=== PATIENT | male | born 1980 | race Caucasian/White ===

== ENCOUNTER 2020-02-20 21:43 | Emergency (ER) | payer SELFPAY ==
[2020-02-20 22:56] VITALS: BP 137/88; PULSE 98; RESP 16; TEMP 36.7; O2SAT 99; BMI 22.4
[2020-02-20] MEDS: tetanus-diphtheria tox (adult) 0.5 mL SDV IM (23:43)
--- NOTE | 2020-02-20 23:51 | W.ED.SKABFB ---
HPI - Skin/Abscess/Foreign Bdy General: Chief complaint: Skin/Abscess/Foreign Body Stated complaint: fish hook in leg Time Seen by Provider: 02/20/20 23:24 Source: patient Mode of arrival: ambulatory Limitations: no limitations History of Present Illness: HPI narrative: got fish hook stuck to L LE a few hours ago; unknown last tetanus complaint: foreign body Onset (ago): hour(s) Tetanus up to date: unsure Location: LLE Severity: mild Context: other (fishing) Associated symptoms: Reports no associated symptoms Treatments prior to arrival: none Review of Systems Musc: Reports: extremity pain Skin/Breast: Reports: other (fish hook to L LE) PFS ED PFSH: Social History Smoking and tobacco status: current every day smoker Physical Exam Const: COMMON NORMALS: no acute distress, average body habitus, patient oriented x3, no limitations, healthy appearing, alert and well nourished Extremity: OTHER: 3 pronged fish hook with one jonny stuck in L LE Neuro: COMMON NORMALS: patient oriented x3, moves all extremities, no focal motor deficits and no sensory deficits noted SENSORIUM/ORIENTATION: Yes alert Skin: OTHER: see extremity Procedures Foreign Body Removal Time Out Performed: no Site: left and lower extremity Description of foreign body: fish hook Sedation/Analgesia: other (local lidocaine with epi) Technique: manual removal and other (hemostats used to push jonny through skin, wire cutters to cut jonny and then hook retracted ) Confirmed by:: direct visualization Complications: none Post-procedure exam: awake, alert Neurovascular: normal distal pulse, normal capillary fill, distal light touch sensation intact, distal motor function normal, no signs of compartment syndrome and no change from pre-procedure Course Vital Signs: Vital signs: Vital Signs Temperature 98.0 F 02/20/20 22:56 Pulse Rate 98 02/20/20 22:56 Respiratory Rate 16 02/20/20 22:56 Blood Pressure 137/88 02/20/20 22:56 Pulse Oximetry 99 02/20/20 22:56 Discharge Plan Discharge Patient Disposition: Home, Self-Care Clinical Impression: Fish hook injury of left lower leg Qualifiers: Encounter type: initial encounter Qualified Code(s): S89.92XA - Unspecified injury of left lower leg, initial encounter Condition: Stable Prescriptions: No Action lisinopril 20 mg Tablet 20 mg RF: 0 Discharge Orders: Discharge Order (Routine); Ordered 02/20/20 Ordered By: Yumiko Cohn Coding Level of Care Code ED Manager Company for Jerome Bennett
[2020-02-21 00:03] VITALS: BP 148/71; PULSE 74; RESP 18; O2SAT 98
== END 2020-02-21 00:04 | disposition home or self-care (01) ==
PROVIDERS: Emergency Provider Physician Assistant
DX: S81.842A Puncture wound with foreign body, left lower leg, initial encounter (principal); W26.8XXA Contact with other sharp object(s), not elsewhere classified, initial encounter; F17.210 Nicotine dependence, cigarettes, uncomplicated; Z23 Encounter for immunization
CPT/HCPCS: 12345; 90471; 90714; 99281; 99282; J2001

== ENCOUNTER 2021-05-01 03:09 | Emergency (ER) | payer MEDICAID, SELFPAY ==
--- NOTE | 2021-05-01 03:18 | XRR_ITS ---
PROCEDURE INFORMATION: Exam: XR Left Wrist Exam date and time: 05/01/2021 3:18 AM Age: 41 years old Clinical indication: Injury or trauma; Fall; Blunt trauma (contusions or hematomas); Wrist; Left TECHNIQUE: Imaging protocol: XR Left wrist. Views: 3 or more views. COMPARISON: No relevant prior studies available. FINDINGS: Bones/joints: Old nonunited fracture of the distal radial styloid. No acute fracture or dislocation. Soft tissues: No large area of soft tissue swelling. XR/XR wrist LT min 3V* [id number] IMPRESSION: No acute fracture. Old nonunited fracture of the radial styloid.
[2021-05-01 04:07] VITALS: BP 147/87; PULSE 96; RESP 18; TEMP 36.6; O2SAT 98; BMI 22.4
[2021-05-01 04:11] VITALS: PULSE 77
--- NOTE | 2021-05-01 04:11 | ED_ITS ---
HPI - Extremity Problem General: Chief complaint: Extremity Problem,Nontraumatic Stated complaint: L WRIST INJURY DUE TO FALL Time Seen by Provider: 05/01/21 03:23 Source: patient Mode of arrival: ambulatory Limitations: no limitations History of Present Illness: HPI Narrative: 41-year-old male states he had a fall 2 days ago onto his left wrist. He states that he has had pain in that wrist since the fall. States pain has been sharp in nature and over the palmar aspect he rates it a 4 out of 10. States is worse with movement. States he fractured that wrist years ago. He denies any other injuries. He states pain currently is a 4 out of 10. Is worse with movement improved with rest. Associated symptoms: Deny chest pain, fever(s) or rash Review of Systems Const: Denies: fever(s), chills, body aches or change in appetite Eyes: Denies: blurry vision or eye discomfort ENMT: Denies: throat pain or dental pain Card: Denies: chest pain Resp: Denies: dyspnea GI: Denies: abdominal pain, nausea, vomiting or diarrhea : Denies: dysuria Musc: Reports: joint pain Skin/Breast: Denies: rash Neuro: Denies: headache(s) Psych: Denies: depression Behzad/Lymph: Denies: easy bruising All/Imm: Denies: urticaria PFSH ED PFSH: Social History Smoking and tobacco status: current every day smoker Physical Exam Const: COMMON NORMALS: no acute distress, patient oriented x3 and healthy appearing HENMT: COMMON NORMALS: normocephalic and atraumatic HEAD & SCALP: normocephalic and atraumatic Eye: COMMON NORMALS: Equal, round and reactive pupils present and EOMs intact bilaterally PUPIL: Yes Equal, round and reactive pupils present Neck/C-Spine: COMMON NORMALS: full ROM and supple Chest: COMMONS NORMALS: normal inspection of the chest and normal palpation of entire chest wall Resp: COMMON NORMALS: normal respiratory effort, No retractions, No use of accessory muscles and clear to auscultation bilaterally AUSCULTATION: clear to auscultation bilaterally Cardio: COMMON NORMALS: regular rate, regular rhythm and No murmurs present (Cardio) RATE: regular rate RHYTHM: regular rhythm GI: COMMON NORMALS: Normal to inspection, nondistended, normoactive bowel sounds present, Soft to palpation, non-tender and no masses PALPATION: Yes Soft to palpation Extremity: COMMON NORMALS: normal to inspection and full ROM NARRATIVE EXTREMITY EXAM: Tenderness over palmar aspect of left wrist no signs of cellulitis or septic joint. No obvious deformity distal pulses and sensation are intact Neuro: COMMON NORMALS: patient oriented x3, moves all extremities and no focal motor deficits Psych: COMMON NORMALS: mental status grossly normal, Normal thought process present and cooperative THOUGHT PROCESS: Normal thought process present Skin: COMMON NORMALS: no rashes or lesions noted and no wounds GENERAL SKIN EXAM: no rashes or lesions noted Course Vital Signs: Vital signs: Vital Signs Temperature 97.8 F 05/01/21 04:07 Pulse Rate 77 05/01/21 04:11 Respiratory Rate 18 05/01/21 04:07 Blood Pressure 147/87 05/01/21 04:07 Pulse Oximetry 98 05/01/21 04:07 MDM - Extremity (Nontraumatic) MDM Narrative: Medical decision making narrative: Patient presents with a wri st sprain from a fall. X-ray here shows no acute fracture. His exam here shows no signs of cellulitis or septic joint. Patient placed in a cock-up wrist splint placed on anti-inflammatories and is to follow-up with orthopedist in 2 to 4 days and return if worsening. Imaging Data^: xr L wrist: Attestation: I personally reviewed and interpreted this imaging study as follows: My impression: no acute fx Discharge Plan Discharge Patient Disposition: Home Clinical Impression: Sprain of wrist, right Qualifiers: Encounter type: initial encounter Qualified Code(s): S63.501A - Unspecified sprain of right wrist, initial encounter Condition: Stable Prescriptions: No Action lisinopril 20 mg Tablet 20 mg RF: 0 Discharge Orders: Discharge ED (Routine); Ordered 05/01/21 Ordered By: Magalys Linares Referrals: Raul Fernando MD [Physician] - 1-3 days Discharge Diet: Advance as tolerated Discharge Activity: Resume usual activity Patient Instructions: Wrist Sprain (ED) Coding Level of Care Code ED Cloth Shrinking Tester for Jerome Bennett
[2021-05-01] MEDS: HYDROcodone-acetaminophen 7.5-325 mg Tablet 1 TAB PO (04:42)
[2021-05-01 04:45] VITALS: RESP 18; TEMP 36.6; O2SAT 98
--- NOTE | 2021-05-02 08:31 | DCPLANNER ---
policy and planning manager had message to schedule a follow up appointment for patient with ortho. policy and planning manager called the ortho clinic, spoke with Staci, gave clinic patients information. policy and planning manager was told that patients information would be printed and reviewed. Clinic will call patient with appointment information.
--- NOTE | 2021-05-04 07:51 | DCPLANNER ---
Patient has a follow up appointment scheduled for Saturday, May 08, 2021 at 8:[address] Fernando at [facility]. Clinic will call patient with appointment information.
--- NOTE | 2021-05-11 14:11 | DCPLANNER ---
Patient had a follow up appointment scheduled for 05.08.21 with ortho - patient did not attend appointment.
== END 2021-05-01 04:46 | disposition home or self-care (01) ==
PROVIDERS: Emergency Provider Emergency Medicine
DX: S63.501A Unspecified sprain of right wrist, initial encounter (principal); F17.210 Nicotine dependence, cigarettes, uncomplicated; W19.XXXA Unspecified fall, initial encounter
CPT/HCPCS: 29125; 73110; 99283

== ENCOUNTER 2021-05-01 10:45 | Emergency (ER) | payer MEDICAID, SELFPAY ==
[2021-05-01 11:48] VITALS: BP 129/74; PULSE 98; RESP 17; TEMP 36.6; O2SAT 98; BMI 23.0
--- NOTE | 2021-05-01 13:23 | XRR_ITS ---
PROCEDURE INFORMATION: Exam: XR Right Wrist Exam date and time: 05/01/2021 1:23 PM Age: 41 years old Clinical indication: Pain; Wrist; Right; Additional info: Right wrist pain TECHNIQUE: Imaging protocol: XR Right wrist. Views: 3 or more views. COMPARISON: No relevant prior studies available. FINDINGS: Bones/joints: Normal. Soft tissues: Normal. XR/XR wrist RT min 3V* [id number] IMPRESSION: No acute findings.
[2021-05-01 15:43] VITALS: BP 109/75; PULSE 96; O2SAT 100
--- NOTE | 2021-05-01 17:29 | W.ED.EXTPRO ---
HPI - Extremity Problem General: Chief complaint: Extremity Injury, Upper Stated complaint: r wrist pain/swelling(seen this AM for opposite) Time Seen by Provider: 05/01/21 15:38 History of Present Illness: HPI Narrative: Patient presents with the right wrist pain for the last week. 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 He has had this problem in his left wrist here recently to. Says it hurts at the base of his wrist. MD Complaint: extremity pain and other (Numbness) Onset (ago): day(s) Pain Consistency: constant Location: right and upper extremity Quality: aching and dull Radiation: distal Relieving factors: nothing Exacerbating factors: range of motion [facility] ED PFSH: Social History Smoking and tobacco status: current every day smoker Course Vital Signs: Vital signs: Vital Signs Temperature 97.9 F 05/01/21 11:48 Pulse Rate 96 05/01/21 15:43 Respiratory Rate 17 05/01/21 11:48 Blood Pressure 109/75 05/01/21 15:43 Pulse Oximetry 100 05/01/21 15:43 Discharge Plan Discharge Patient Disposition: Home Clinical Impression: Acute carpal tunnel syndrome of right wrist Condition: Stable Prescriptions: New prednisone 20 mg tablet 20 mg PO DAILY Qty: 7 RF: 0 Celebrex 100 mg capsule 100 mg PO BID Qty: 20 RF: 0 No Action lisinopril 20 mg Tablet 20 mg RF: 0 Discharge Orders: Discharge ED (Routine); Ordered 05/01/21 Ordered By: Jamal Thakkar Discharge Diet: Usual diet Discharge Activity: Limit activity as instructed Patient Instructions: Carpal Tunnel Syndrome Exercises (GEN), Carpal Tunnel Syndrome (ED) Activity Restrictions/Additional Instructions: Follow-up with medical provider as directed. Take medications as prescribed. Return to the ER or your medical provider if condition worsens. Please read and understand discharge instructions. If any questions ask please. Buy a wrist brace at local store and wear that for next 2 to 3 weeks. Quit doing repetitive tasks that are causing this to happen. Follow-up your primary care provider if no significant improvement. Coding Level of Care Code ED Respiratory Care Program Director for Jerome Bennett
== END 2021-05-01 17:39 | disposition home or self-care (01) ==
PROVIDERS: Emergency Provider Nurse Practitioner Family
DX: G56.01 Carpal tunnel syndrome, right upper limb (principal); F17.210 Nicotine dependence, cigarettes, uncomplicated
CPT/HCPCS: 73110; 99282

== ENCOUNTER 2021-06-24 22:00 | Emergency (ER) | payer MEDICAID, SELFPAY ==
[2021-06-24 22:00] VITALS: BP 165/110; PULSE 90; RESP 16; TEMP 36.6; O2SAT 97; BMI 21.7
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
[2021-06-24 22:28] VITALS: RESP 16
== END 2021-06-24 22:29 | disposition home or self-care (01) ==
PROVIDERS: Emergency Provider Emergency Medicine
DX: F32.A Depression, unspecified (principal); F17.210 Nicotine dependence, cigarettes, uncomplicated
CPT/HCPCS: 99281

== ENCOUNTER 2022-02-01 10:28 | Emergency (ER) | payer MEDICAID, SELFPAY ==
[2022-02-01 10:30] VITALS: BP 146/89; PULSE 107; RESP 18; TEMP 36.7; O2SAT 99; BMI 23.0
[2022-02-01 10:49] VITALS: BP 156/87; PULSE 88; RESP 13; O2SAT 98
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
[2022-02-01] MEDS: HYDROcodone-acetaminophen 5-325 mg Tablet 1 TAB PO (11:20)
--- NOTE | 2022-02-01 12:13 | XRR_ITS ---
PROCEDURE INFORMATION: Exam: XR Right Elbow Exam date and time: 02/01/2022 12:37 PM Age: 41 years old Clinical indication: Pain; Elbow; Right; Additional info: Deliniation of right fracture TECHNIQUE: Imaging protocol: XR Right elbow. Views: 1 or 2 views. COMPARISON: CR XR forearm RT 2V [id number] 02/01/2022 11:27 AM FINDINGS: Bones/joints: There is a linear lucency traversing the radial head extending into the joint space consistent with interarticular nondisplaced fracture. This finding is best seen on the lateral view and not as well visualized on other views. Soft tissues: There is joint space effusion seen with displacement of the anterior and posterior fat pads. XR/XR elbow RT 2V [id number] IMPRESSION: 1. Nondisplaced longitudinal interarticular fracture radial head 2. Negative for additional bony abnormality. 3. Joint space effusion.
[2022-02-01 13:58] VITALS: BP 137/90; PULSE 76; RESP 14; O2SAT 95
[2022-02-01 13:59] VITALS: BP 137/90; PULSE 76; RESP 14; O2SAT 95
--- NOTE | 2022-02-01 14:16 | DCPLANNER ---
Addendum entered by Cyndi Wade 02/11/22 07:38: Patient had a follow up appointment scheduled with ortho - patient did attend appointment. Addendum entered by Cyndi Wade 02/04/22 09:36: Patient has a follow up appointment scheduled for Friday, February 06, 2022 at 9:[address] Fernando at ortho. Clinic will call patient with appointment information. Original Note: it risk and assurance senior manager had message to schedule a follow up appointment for patient with ortho. it risk and assurance senior manager sent patients information to the front office staff at ortho. Patients information will be printed and reviewed. Clinic will call patient with appointment information.
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
== END 2022-02-01 14:01 | disposition home or self-care (01) ==
PROVIDERS: Emergency Provider Emergency Medicine
DX: S52.124A Nondisplaced fracture of head of right radius, initial encounter for closed fracture (principal); S00.81XA Abrasion of other part of head, initial encounter; V43.52XA Car driver injured in collision with other type car in traffic accident, initial encounter
CPT/HCPCS: 73070; 73090; 99283

== ENCOUNTER → 2022-02-06 09:39 | Outpatient (BNVA) | payer MEDICAID, SELFPAY | PROVIDERS: Referring Provider Emergency Medicine; Visit Provider Orthopaedic Surgery | DX: M25.531 Pain in right wrist | CPT/HCPCS: 73110 ==

== ENCOUNTER 2022-05-08 20:11 | Inpatient (IN) | payer MEDICAID, SELFPAY ==
--- NOTE | 2022-05-08 20:19 | XRR_ITS ---
PROCEDURE INFORMATION: Exam: XR Chest Exam date and time: 05/08/2022 8:37 PM Age: 42 years old Clinical indication: Pain; Chest pressure; Additional info: Chest pain TECHNIQUE: Imaging protocol: Radiologic exam of the chest. Views: 1 view. COMPARISON: CR XR chest 2V* [id number] 12/30/2016 10:05 AM FINDINGS: Lungs: Unremarkable. No consolidation. Pleural spaces: Unremarkable. No pleural effusion. No pneumothorax. Heart/Mediastinum: Unremarkable. No cardiomegaly. Bones/joints: Unremarkable. XR/XR chest 1V portable [id number] IMPRESSION: No acute findings.
[2022-05-08 20:23] VITALS: BMI 22.4
[2022-05-08 20:24] VITALS: BP 164/110; PULSE 186; RESP 26; TEMP 37.1; O2SAT 97
--- NOTE | 2022-05-08 20:26 | W.ED.CHESTPA ---
HPI - Chest Pain General: Chief Complaint: ER Hold Stated Complaint: cp Time Seen by Provider: 05/08/22 20:26 History of Present Illness: Mr. Duffy is a 42-year-old gentleman with history of hypertension who presents to the emergency department due to chest pain. 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 While driving he had onset of chest discomfort in the middle of his chest which felt like heaviness or something standing on his chest. Additionally he initially noted palpitations and racing heart. The racing heart sensation stopped for a short period of time however then recurred however the chest pain has not improved. Intensity symptoms moderate to severe. Associated shortness of breath present. No other specific changes in health, exacerbating, or alleviating factors identified. No history of similar. Additional cardiac risk factors including positive family history for early cardiac disease and smoking. Onset (ago): hour(s) Timing of current episode: constant Prior episodes: No Onset: during rest Pain location: substernal Severity: severe Quality: heaviness Relieving factors: nothing Exacerbating factors: nothing Associated symptoms: Reports dyspnea and palpitations Review of Systems General: Reports: 10 or more systems reviewed and unremarkable except in HPI and below Card: Reports: palpitations Resp: Reports: dyspnea PFSH ED PFSH: Medical History Hypertension Surgical History No significant past surgical history Family History (Updated 05/08/22 @ 23:54 by Librado Rodriguez MD) Father CAD (coronary artery disease) Grandfather CAD (coronary artery disease) Family/Other CAD (coronary artery disease) Other Family history of premature coronary artery disease Social History Smoking and tobacco status: current every day smoker Physical Exam Const: COMMON NORMALS: alert GENERAL APPEARANCE: cooperative, well developed and ill appearing HENMT: COMMON NORMALS: normocephalic and atraumatic HEAD & SCALP: normocephalic and atraumatic Eye: COMMON NORMALS: conjunctivae normal CONJUNCTIVA: Yes conjunctivae normal SCLERA: sclerae normal Neck/C-Spine: COMMON NORMALS: supple GENERAL: Yes trachea midline Resp: COMMON NORMALS: normal respiratory effort and clear to auscultation bilaterally EFFORT & INSPECTION: Yes able to speak in complete sentences AUSCULTATION: clear to auscultation bilaterally Cardio: COMMON NORMALS: regular rhythm RATE: tachycardic RHYTHM: regular rhythm GI: COMMON NORMALS: Soft to palpation PALPATION: Yes Soft to palpation and No Tenderness to palpation present (GI) Extremity: GENERAL: Yes normal exam except as noted and No edema Neuro: COMMON NORMALS: moves all extremities SENSORIUM/ORIENTATION: Yes alert and No Orientation impaired Psych: COMMON NORMALS: mental status grossly normal and Normal thought process present THOUGHT PROCESS: Normal thought process present Course ED course: - Patient was seen and evaluated by me at bedside - Patient placed on cardiac monitors, IV access obtained - Initial evaluation notable for exam as above. Patient has SVT. - Successful improvement in rate with modified Valsalva maneuver. Chest pain persists. - Labs and xrays personally interpreted by me - Fluids, analgesia given - Labs notable for mild hemoconcentration, no acute electrolyte derangement to explain arrhythmia. Delta troponin is positive which is likely related to stress of tachyarrhythmia. - Imaging notable for no lobar consolidation or pneumothorax. - Upon serial reexamination after treatment the patient was improved though still having some chest discomfort. Repeat EKG shows sinus tachycardia, no STEMI. - Based on patient history, evaluation, and testing as interpreted the most likely cause of the patient's condition is SVT and chest pain of uncertain etiology. - The results of ED evaluation were discussed with the patient including plan for admission due to requirement for level of care not available if discharged to prevent significant worsening/deterioration. - Admitting service was contacted and Dr Rodriguez with the hospitalist service. Agreed to admit the patient - Patient was admitted without further deterioration or significant events. Note: Click bubbles or prepopulated hawk in note writing are used for assistance with data collection and billing and are inherently more limited than narrative and other text portions of this note. Please use narrative for additional clinical history and defer to narrative/free test for any case of contradictory information. If information appears in only free text or click bubble it should be considered present or absent as reported. Please contact note sports writer for clarifications of clinical information or contradictory information. MDM is a brief summary, contradictory or erroneous seeming information should be clarified and full note should be reviewed. Vital Signs: Vital signs: Vital Signs Temperature 98.8 F 05/08/22 20:24 Pulse Rate 105 H 05/08/22 20:30 Respiratory Rate 20 H 05/08/22 20:58 Blood Pressure 134/98 05/08/22 20:30 Pulse Oximetry 95 05/08/22 20:30 Oxygen Delivery Me thod 05/08/22 20:30 MDM - Chest Pain Medical Decision Making 42-year-old gentleman with history of hypertension, tobaccoism, positive family history for early CAD presenting with chest pain found to be in SVT. Successful conversion to sinus rhythm with improved rate with modified Valsalva maneuver. No clear etiology identified on ED evaluation. Medical Records I reviewed the patient's medical records. Lab Data I reviewed the patient's lab results. : 05/08/22 20:03 05/08/22 20:03 Radiology Impressions Chest X-Ray 05/08/22 20:19 IMPRESSION: No acute findings. Laboratory Results WBC 10.5 10^3/uL (4.0-10.0) H 05/08/22 20:03 RBC 5.45 10^6/uL (4.1-5.3) H 05/08/22 20:03 Hgb 17.2 g/dL (11.7-16.6) H 05/08/22 20:03 Hct 49.7 % (42.0-52.0) 05/08/22 20:03 MCV 91.2 fl (80-94) 05/08/22 20:03 MCH 31.6 pg (28.0-34.0) 05/08/22 20:03 MCHC 34.6 g/dL (30.0-36.0) 05/08/22 20:03 RDW 12.4 % (12.1-15.1) 05/08/22 20:03 Plt Count 347 10^3/cmm (130-400) 05/08/22 20:03 MPV 9.9 fL (7.4-10.4) 05/08/22 20:03 Neut % (Auto) 53.6 % 05/08/22 20:03 Lymph % (Auto) 35.0 % 05/08/22 20:03 [place] % (Auto) 7.6 % 05/08/22 20:03 Eos % (Auto) 2.5 % 05/08/22 20:03 Baso % (Auto) 1.0 % 05/08/22 20:03 Neut # (Auto) 5.63 10^3/uL (1.8-7.7) 05/08/22 20:03 Lymph # (Auto) 3.7 10^3/uL (0.8-4.8) 05/08/22 20:03 [place] # (Auto) 0.8 10^3/uL (0.2-0.9) 05/08/22 20:03 Eos # (Auto) 0.3 10^3/uL (0.0-0.8) 05/08/22 20:03 Baso # (Auto) 0.1 10^3/uL (0.0-0.1) 05/08/22 20:03 Nucleated RBC % (auto) 0 % 05/08/22 20:03 Nucleated RBCs # 0.0 /100WBC 05/08/22 20:03 Sodium 136 mmol/L (136-145) 05/08/22 20:03 Potassium 4.2 mmol/L (3.5-5.1) 05/08/22 20:03 Chloride 98 mmol/L (98-107) 05/08/22 20:03 Carbon Dioxide 25 mmol/L (22-29) 05/08/22 20:03 Anion Gap 17.2 (5-19) 05/08/22 20:03 BUN 14 mg/dL (6-20) 05/08/22 20:03 Creatinine 0.9 mg/dL (0.7-1.2) 05/08/22 20:03 GFR Calculation 91.7 mL/min (90-130) 05/08/22 20:03 Glucose 101 mg/dL (65-115) 05/08/22 20:03 Calculated Osmolality 283 mOsm/kg (285-295) L 05/08/22 20:03 Calcium 9.4 mg/dL (8.5-10.5) 05/08/22 20:03 Magnesium 1.9 mg/dL (1.7-2.3) 05/08/22 20:03 Troponin T Baseline 16 ng/L (0-15) H 05/08/22 20:03 Troponin T 120 Minute 27.11 ng/L (0-15) H 05/08/22 21:57 Delta Troponin T 11.11 ABS# (0-10) H* 05/08/22 21:57 NT-Pro-B Natriuret Pep 42 pg/mL (0-125) 05/08/22 23:47 Triglycerides 149 mg/dL (0-150) 05/08/22 23:47 Cholesterol 167 mg/dL (0-200) 05/08/22 23:47 LDL Cholesterol, Calc 83 mg/dL (50-129) 05/08/22 23:47 HDL Cholesterol 54 mg/dL (60-100) L 05/08/22 23:47 LDL/HDL Ratio 1.54 RATIO (0.00-3.22) 05/08/22 23:47 Cholesterol/HDL Ratio 3.09 mg/dL (1.0-5.00) 05/08/22 23:47 TSH 2.37 uIU/mL (0.27-4.20) 05/08/22 23:47 Discharge Plan Discharge Patient Disposition: Placed in Observation Clinical Impression: Chest pain, SVT (supraventricular tachycardia) Coding Level of Care Code ED Porcelain Enamel Laborer for Jerome Fwd Exam Comprehensive
--- NOTE | 2022-05-08 20:28 | ECG_ITS ---
[facility] Test Date: 2022-05-08 Pat Name: Henrry Duffy Department: Room: Gender: Male Mica Patcher: : 1980 Requested By: Joni Coker Order Number: [id number] Maude MD: Santiago Downey M.D. Measurements Intervals [place] Rate: 109 P: 78 GA: 147 QRS: 95 QRSD: 98 T: 77 QT: 323 QTc: 437 Interpretive Statements SINUS TACHYCARDIA POSSIBLE LEFT ATRIAL ENLARGEMENT [-0.1mV P-WAVE IN V1/V2] BORDERLINE RIGHT AXIS DEVIATION [QRS AXIS > 90] INCOMPLETE RIGHT BUNDLE BRANCH BLOCK [90+ ms QRS DURATION, TERMINAL R IN V1/V2, 40+ ms S IN I/aVL/V4/V5/V6] ABNORMAL RHYTHM ECG Compared to ECG 06/18/2017 16:06:26 Incomplete right bundle-branch block now present Sinus rhythm no longer present Electronically Signed On 05-09-2022 10:32:30 CDT by Santiago Downey M.D. [id number] f
[2022-05-08 20:30] VITALS: BP 134/98; PULSE 105; RESP 20; O2SAT 95
[2022-05-08 20:53] LABS: Basophils # 0.1 10^3/uL (0.0-0.1); Eosinophils # 0.3 10^3/uL (0.0-0.8); Eosinophils % 2.5 %; Hematocrit 49.7 % (42.0-52.0); Hemoglobin 17.2 g/dL (11.7-16.6); Lymphocytes # 3.7 10^3/uL (0.8-4.8); Mean Corpuscular HGB Conc 34.6 g/dL (30.0-36.0); Mean Corpuscular Hemoglobin 31.6 pg (28.0-34.0); Mean Corpuscular Volume 91.2 fl (80-94); Mean Platelet Volume 9.9 fL (7.4-10.4); Monocytes # 0.8 10^3/uL (0.2-0.9); Monocytes % 7.6 %; Neutrophils # 5.63 10^3/uL (1.8-7.7); Neutrophils % 53.6 %; Nucleated Red Blood Cells % 0 %; Platelet Count 347 10^3/cmm (130-400); Red Blood Count 5.45 10^6/uL (4.1-5.3); Red Cell Distribution Width 12.4 % (12.1-15.1); White Blood Count 10.5 10^3/uL (4.0-10.0)
[2022-05-08 20:58] VITALS: RESP 20
[2022-05-08] MEDS: morphine 4 mg/mL SDV 1 mL IVP (20:58)
[2022-05-08] MEDS: sodium chloride 0.9% 1,000 ML 999 ML IV (20:59)
[2022-05-08 21:10] LABS: Troponin(5th) Baseline 16 ng/L (0-15)
[2022-05-08 21:12] LABS: Blood Urea Nitrogen 14 mg/dL (6-20); Calcium 9.4 mg/dL (8.5-10.5); Carbon Dioxide 25 mmol/L (22-29); Chloride 98 mmol/L (98-107); Glomerular Filtration Rate 91.7 mL/min (90-130); Glucose 101 mg/dL (65-115); Magnesium 1.9 mg/dL (1.7-2.3); Osmolality Calculated 283 mOsm/kg (285-295); Sodium 136 mmol/L (136-145)
[2022-05-08 21:25] LABS: Anion Gap 17.2 (5-19); Potassium 4.2 mmol/L (3.5-5.1)
--- NOTE | 2022-05-08 22:31 | ECG_ITS ---
[facility] Test Date: 2022-05-08 Pat Name: Henrry Duffy Department: Room: Gender: Male General Road Supervisor: : 1980 Requested By: Joni Coker Order Number: [id number] Santoro MD: Santiago Downey M.D. Measurements Intervals [place] Rate: 84 P: 73 PA: 154 QRS: 95 QRSD: 102 T: 73 QT: 360 QTc: 426 Interpretive Statements SINUS RHYTHM POSSIBLE LEFT ATRIAL ENLARGEMENT [-0.1mV P-WAVE IN V1/V2] BORDERLINE RIGHT AXIS DEVIATION [QRS AXIS > 90] Compared to ECG 05/08/2022 20:28:26 Sinus tachycardia no longer present Incomplete right bundle-branch block no longer present Electronically Signed On 05-09-2022 10:41:44 CDT by Santiago Downey M.D. [email or web address] [email or web address]/store/[id number]
[2022-05-08 22:37] LABS: Troponin 5 2HR 27.11 ng/L (0-15)
[2022-05-08 22:59] LABS: Troponin 5 2HR Delta 11.11 ABS# (0-10)
[2022-05-08] MEDS: aspirin 81 mg Chew Tablet 324 MG PO (23:49)
--- NOTE | 2022-05-08 23:51 | PM.HP ---
Providers/Chief Complaint Chief Complaint: cp History of Present Illness Henrry Duffy is a 42 year old male with a past medical history of hypertension, who presents [facility] for chest pain, palpitations. 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 He tells me that today after work, he was in his truck, when he had severe substernal chest pain, like something sitting on his chest, associate with shortness of breath, nonradiating, no lightheadedness, dizziness but started develop chest palpitations. His symptoms lasted for few minutes then resolved. On his way home he had another episode of severe substernal chest pain, l severe pressure-like pain, with chest palpitations. Here in the emergency room, he was found to have SVT, converted to normal sinus rhythm with modified Valsalva maneuver. Currently normal sinus rhythm, continue to complain of some chest discomfort, chest pressure, does have a family history of premature cardiovascular disease in his father, uncle, and grandfather. Review of Systems Const: Denies: fever(s) Eyes: Denies: change in vision Card: Reports: chest pain and palpitations Resp: Denies: dyspnea GI: Denies: abdominal pain : Denies: difficulty urinating Neuro: Denies: headache(s) Medications/Allergies Home Medications Medication Instructions Recorded Confirmed Last Taken Type lisinopril 10 mg tablet 10 mg PO DAILY 02/01/22 02/06/22 02/01/22 History hydrocodone 7.5 mg-acetaminophen 1 tab PO Q8H PRN pain 7 days #30 02/06/22 02/06/22 Unknown Rx 325 mg tablet tabs Allergies Allergy/AdvReac Type Severity Reaction Status Date / Time No Known Allergies Allergy Verified 02/06/22 09:28 PFSH Acute PFSH: Medical History Hypertension Surgical History No significant past surgical history Family History (Updated 05/08/22 @ 23:54 by Librado Rodriguez MD) Father CAD (coronary artery disease) Grandfather CAD (coronary artery disease) Family/Other CAD (coronary artery disease) Other Family history of premature coronary artery disease Social History Smoking and tobacco status: current every day smoker Vitals/I&O/Wt Last Vital Signs Temp 98.8 F 05/08/22 20:24 Pulse 105 H 05/08/22 20:30 Resp 20 H 05/08/22 20:58 BP 134/98 05/08/22 20:30 Pulse Ox 95 05/08/22 20:30 O2 Del Method 05/08/22 20:30 05/08/22 05/08/22 05/09/22 14:59 22:59 06:59 Intake Total 1000 / 1000 Balance 1000 / 1000 Weight last 48 hrs Weight 74.843 kg Physical Exam Const: COMMON NORMALS: no acute distress and patient oriented x3 HENMT: COMMON NORMALS: normocephalic HEAD & SCALP: normocephalic Eye: COMMON NORMALS: Equal, round and reactive pupils present and EOMs intact bilaterally Neck/C-Spine: COMMON NORMALS: no JVD Resp: COMMON NORMALS: normal respiratory effort, No retractions, No use of accessory muscles and clear to auscultation bilaterally AUSCULTATION: clear to auscultation bilaterally Cardio: COMMON NORMALS: no JVD, regular rate, regular rhythm, S1 normal heart sound present and S2 normal heart sound present RATE: regular rate RHYTHM: regular rhythm HEART SOUNDS: S1 normal heart sound present and S2 normal heart sound present GI: COMMON NORMALS: Normal to inspection, nondistended, normoactive bowel sounds present, Soft to palpation, non-tender, No hepatosplenomegaly present, no masses and no bruits PALPATION: Yes Soft to palpation and Yes No hepatosplenomegaly present Extremity: COMMON NORMALS: no pedal edema Neuro: COMMON NORMALS: patient oriented x3, CN's II-XII intact bilaterally and moves all extremities Psych: COMMON NORMALS: mental status grossly normal Data : 05/08/22 20:03 05/08/22 20:03 A&P Assessment and plan (1) Chest pain: Status: Acute (2) SVT (supraventricular tachycardia): Status: Acute (3) Hypertension: Status: Acute Plan Chest pain -Seems truly cardiac in nature, with concerning features Plan -Serial EKGs, serial troponins, telemetry monitoring -Aspirin, statin, metoprolol, nitro as needed for chest pain -Cardiac echo -He has a positive troponin trend, will hold off on stress test until we discussed with cardiology, potentially requiring cardiac angiogram -Full code -Lovenox for DVT prophylaxis SVT, improved with Valsalva maneuver, currently normal sinus rhythm, check TSH, urine drug screen Magnesium 1.9, will replace Attestations Medical Necessity Statement*: Patient requires hospitalization, outpatient with observation for chest pain, SVT Coding Level of Care Code Acute Electrical Worker for Jerome Bennett Diagnoses Chest pain R07.9 SVT (supraventricular tachycardia) I47.1 Hypertension I10
[2022-05-09] VITALS (8 sets, daily range): BP systolic 130–162; BP diastolic 79–100; PULSE 62–78; RESP 12–18; TEMP 36.5–36.7; O2SAT 94–99; BMI 22.4
[2022-05-09 00:22] LABS: NT Pro B Type Natriuretic Pept 42 pg/mL (0-125)
[2022-05-09 00:23] LABS: Chol HDL Ratio 3.09 mg/dL (1.0-5.00); Cholesterol 167 mg/dL (0-200); HDL Cholesterol 54 mg/dL (60-100); LDL Cholesterol Calculated 83 mg/dL (50-129); LDL HDL Ratio 1.54 RATIO (0.00-3.22); Thyroid Stimulating Hormone 2.37 uIU/mL (0.27-4.20); Triglycerides 149 mg/dL (0-150)
[2022-05-09] MEDS: metoprolol tartrate 25 mg Tablet 12.5 MG PO ×3 (01:31→23:56)
[2022-05-09] MEDS: magnesium sulfate premix 2 GM/50 ML PIGGYBACK IV (01:32)
[2022-05-09] MEDS: enoxaparin 40 mg/0.4 mL Syringe SUBCUT ×2 (01:32→23:56)
[2022-05-09] MEDS: sodium chloride 0.9% 1,000 ML 75 ML IV ×2 (01:34→13:29)
[2022-05-09 06:10] LABS: Basophils # 0.1 10^3/uL (0.0-0.1); Basophils % 1.4 %; Eosinophils # 0.3 10^3/uL (0.0-0.8); Eosinophils % 4.4 %; Hematocrit 41.4 % (42.0-52.0); Hemoglobin 14.3 g/dL (11.7-16.6); Lymphocytes # 2.2 10^3/uL (0.8-4.8); Lymphocytes % 38.7 %; Mean Corpuscular HGB Conc 34.5 g/dL (30.0-36.0); Mean Corpuscular Hemoglobin 31.8 pg (28.0-34.0); Mean Platelet Volume 9.8 fL (7.4-10.4); Monocytes # 0.4 10^3/uL (0.2-0.9); Monocytes % 7.4 %; Neutrophils % 47.7 %; Nucleated Red Blood Cells % 0 %; Platelet Count 237 10^3/cmm (130-400); Red Cell Distribution Width 12.8 % (12.1-15.1); White Blood Count 5.7 10^3/uL (4.0-10.0)
[2022-05-09 06:37] LABS: Blood Urea Nitrogen 14 mg/dL (6-20); Calcium 8.1 mg/dL (8.5-10.5); Carbon Dioxide 26 mmol/L (22-29); Chloride 106 mmol/L (98-107); Glomerular Filtration Rate 122.5 mL/min (90-130); Glucose 98 mg/dL (65-115); Osmolality Calculated 290 mOsm/kg (285-295); Sodium 140 mmol/L (136-145); Troponin 5 6HR 26.52 ng/L (0-15)
[2022-05-09 06:44] LABS: Anion Gap 12.3 (5-19); Potassium 4.3 mmol/L (3.5-5.1); Troponin 5 6HR Delta 10.52 ng/L (0-12)
[2022-05-09 08:09] LABS: Amphetamines Screen Urine Positive (Negative); Barbiturates Screen Urine Negative (Negative); Benzodiazepines Screen Urine Negative (Negative); Cocaine Screen Urine Negative (Negative); Opiate Screen Urine Positive (Negative); PCP Screen Urine Negative (Negative); THC Screen Urine Negative (Negative)
[2022-05-09] MEDS: aspirin 81 mg EC Tablet PO (08:36)
[2022-05-09] MEDS: atorvastatin 40 mg Tablet PO ×2 (08:36→11:49)
[2022-05-09] MEDS: pantoprazole DR 40 mg Tablet PO (08:36)
[2022-05-09] MEDS: acetaminophen 325 mg Tablet 650 MG PO (11:47)
--- NOTE | 2022-05-09 11:49 | ECG_ITS ---
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 Interpretive Statements NAME OF STUDY: LEXISCAN SESTAMIBI STRESS TEST INDICATION: Chest Pain PROCEDURE: At the baseline, the blood pressure was 151/90 mmHg with a heart rate of 65 bpm. The electrocardiogram showed sinus rhythm, possible left atrial enlargement. right axis deviation. The Lexiscan was infused over a period of 20 seconds. A total of 0.4 milligrams of Lexiscan was infused. The stress phase was continued for a total of 5 minutes. Heart rate at the end of the stress phase was 82 bpm with a blood pressure of 142/76 mmHg. The EKG at the peak infusion revealed no significant ST-T wave changes. The study was terminated due to protocol completion. Sestamibi was injected 20 seconds after the Lexiscan infusion. Blood pressure at the end of the recovery phase was 135/76 mmHg with a heart rate of 82 beats per minute. CONCLUSION: 1. No significant EKG changes with the LexiScan infusion. 2. No LexiScan induced chest pain or cardiac arrhythmia. 3. Normal blood pressure and heart rate response. 4. Sestamibi/sestamibi perfusion scan pending; see separate report. Electronically Signed On 05-10-2022 10:53:16 CDT by Lesa Owen M.D. [email or web address] [email or web address]/[id number]
--- NOTE | 2022-05-09 18:23 | P.PN_ITS ---
Subjective Subjective: Patient was seen and examined this morning, he was complaining of substernal chest pain pressure-like, though improved since yesterday, 2D echo has been done: Results appreciated, given his significant smoking history, as well as hypertension. It will be prudent to at least do a stress test. He has been scheduled for a stress test tomorrow in the morning. Medications: Medication Review Details: Generic Name Dose Route Start Last Admin Trade Name Amie PRN Reason Stop Dose Admin Acetaminophen 650 mg 05/08/22 23:47 05/09/22 11:47 Acetaminophen 32 5 Mg Tablet PO 650 mg Q6H PRN Administration Mild/Mod Pain Or Temp >/= 101 Aspirin 81 mg 05/09/22 09:00 05/09/22 08:36 Aspirin 81 Mg Ec Tablet PO 81 mg DAILY SHARON Administration Atorvastatin Calci um 40 mg 05/09/22 09:00 05/09/22 11:49 Atorvastatin 40 Mg Tablet PO 40 mg DAILY SHARON Administration Enoxaparin Sodium 40 mg 05/08/22 23:45 05/09/22 01:32 Enoxaparin 40 Mg /0.4 Ml Syringe SUBCUT 40 mg Q24H SHARON Administration Sodium Chloride 1,000 mls @ 75 ml s/hr 05/08/22 23:45 05/09/22 13:29 Sodium Chloride 0.9% IV 75 mls/hr .[id number] SHARON Administration Metoprolol Tartrat e 12.5 mg 05/08/22 23:45 05/09/22 11:50 Metoprolol Tartr ate 25 Mg Tablet PO 12.5 mg Q12H SHARON Administration Pantoprazole Sodiu m 40 mg 05/09/22 09:00 05/09/22 08:[address] 40 Mg Tablet PO 40 mg DAILY SHARON Administration Vitals/I&O/Wt Last Vital Signs Temp 98.1 F 05/09/22 15:28 Pulse 77 05/09/22 15:28 Resp 14 05/09/22 15:28 BP 162/100 05/09/22 15:28 Pulse Ox 94 05/09/22 15:28 O2 Del Method 05/09/22 15:28 05/09/22 05/09/22 05/09/22 06:59 14:59 22:59 Intake Total 1000 / 1000 1280 / 1280 240 / 1520 Balance 1000 / 1000 1280 / 1280 240 / 1520 Weight last 48 hrs Weight 74.843 kg Weight 74.843 kg Physical Exam Const: COMMON NORMALS: patient oriented x3 Chest: COMMONS NORMALS: normal inspection of the chest and normal palpation of entire chest wall CHEST: Yes Symmetrical chest wall rise Resp: COMMON NORMALS: normal respiratory effort, No retractions, No use of accessory muscles and clear to auscultation bilaterally EFFORT & INSPECTION: Yes symmetric chest movement AUSCULTATION: clear to auscultation bilaterally Cardio: COMMON NORMALS: regular rate, regular rhythm, S1 normal heart sound present, S2 normal heart sound present, No gallops present (Cardio), No murmurs present (Cardio), No rub (Cardio) and Peripheral pulses 2+ throughout RATE: regular rate RHYTHM: regular rhythm HEART SOUNDS: S1 normal heart sound present and S2 normal heart sound present PERIPHERAL PULSES: Peripheral pulses 2+ throughout GI: COMMON NORMALS: Normal to inspection, nondistended, normoactive bowel sounds present, Soft to palpation, non-tender, No hepatosplenomegaly present and no masses AUSCULTATION: Yes normoactive bowel sounds PALPATION: Yes Soft to palpation and Yes No hepatosplenomegaly present RECTAL EXAM: Yes deferred Extremity: COMMON NORMALS: no clubbing, cyanosis or edema and no pedal edema Neuro: COMMON NORMALS: patient oriented x3 Data : 05/09/22 06:01 05/09/22 06:01 A&P Assessment and plan (1) Chest pain: Status: Acute (2) SVT (supraventricular tachycardia): Status: Acute (3) Hypertension: Status: Acute Plan Chest pain -Seems truly cardiac in nature, with concerning features Plan -Serial EKGs, serial troponins, telemetry monitoring -Aspirin, statin, metoprolol, nitro as needed for chest pain -Cardiac echo -He has a positive troponin trend, will hold off on stress test until we discussed with cardiology, potentially requiring cardiac angiogram -Full code -Lovenox for DVT prophylaxis SVT, improved with Valsalva maneuver, currently normal sinus rhythm, check TSH, urine drug screen Magnesium 1.9, will replace Attestations Medical Necessity Statement*: Patient is to be hospitalized for chest pain management. Coding Level of Care Code Acute Forestry Foreman for Jerome Bennett Diagnoses Chest pain R07.9 SVT (supraventricular tachycardia) I47.1 Hypertension I10
[2022-05-09] MEDS: cloNIDine 0.1 mg Tablet PO (18:35)
--- NOTE | 2022-05-09 23:47 | USCV_ITS ---
Henrry Duffy Age: 42 Gender: M : 1980 Exam Date: 05/09/2022 01:44 Ordering Phys: Librado Rodriguez MD Technologist: JUAN DIEGO [place] [facility] [place]: chest pain today. No history of cardiac intervention per patient. BP: 134 / 98 HR: 72 Rhythm: Sinus Technical Quality: Adequate MEASUREMENTS (Male / Female) Normal Values 2D ECHO LV Diastolic Diameter PLAX 3.8 cm 4.2 - 5.9 / 3.9 - 5.3 cm LV Systolic Diameter PLAX 2.3 cm IVS Diastolic Thickness 1.2 cm 0.6 - 1.0 / 0.6 - 0.9 cm IVS Systolic Thickness 1.9 cm LVPW Diastolic Thickness 1.2 cm 0.6 - 1.0 / 0.6 - 0.9 cm LVPW Systolic Thickness 1.7 cm LVOT Diameter 2.0 cm LV Ejection Fraction 2D Teich 69.2 % LV Ejection Fraction MOD 2C 68.3 % LV Ejection Fraction 2C AL 69.2 % LA Diameter 3.3 cm LA Width 3.8 cm LA Height 4.0 cm RA Width 3.7 cm RA Height 3.5 cm Aorta at Sinotubular Diameter 2.8 cm IVC Diameter 1.5 cm M-MODE Aortic Annulus Diameter 2.6 cm LA Ao Ratio MM 1.1 MV E Point Septal Separation 0.3 cm DOPPLER AV Peak Velocity 75.0 cm/s LVOT Peak Velocity 61.0 cm/s AV Area Cont Eq vti 2.8 cm squared AV Area Cont Eq pk 2.6 cm squared MV Peak Velocity 126.0 cm/s MV Area PHT 2.9 cm squared Mitral E to A Ratio 1.1 MV E' Velocity 42.5 cm/s Mitral E to MV E' Ratio 6.9 Mitral E to LV E' Lateral Ratio 7.1 Mitral E to LV E' Septal Ratio 6.6 TR Peak Velocity 206.7 cm/s TR Peak Gradient 17.1 mmHg TV Peak E Velocity 73.0 cm/s Right Atrial Pressure 5.0 mmHg Pulmonary Artery Systolic Pressu 22.1 mmHg PV Peak Velocity 83.0 cm/s RV Acceleration Time 0.1 s RV Ejection Time 0.4 s RV AcT/ET 0.3 FINDINGS Left Ventricle Left ventricle is normal in size. LV systolic function is normal with EF of 55 to 60%. No regional wall motion abnormalities are seen. Diastolic function is normal Right Ventricle Normal in size and function Right Atrium Normal in size Left Atrium Normal in size Mitral Valve Mitral valve is thickened. No significant stenosis or regurgitation. Aortic Valve Structurally normal aortic valve. Significant stenosis or regurgitation. Tricuspid Valve Trace tricuspid regurgitation. Insufficient TR jet to calculate RVSP. Pulmonic Valve Not well-visualized Pericardium Normal Aorta Normal in size IVC IVC appears to be normal CONCLUSIONS LV systolic function is normal with a EF of 55 to 60% Mitral valve is thickened. Trace tricuspid regurgitation. No comparison studies are available Santiago Downey MD (Electronically Signed) Final Date: 09 May 2022 09:28 S
[2022-05-10] VITALS: BP 151/91; PULSE 69; RESP 19; TEMP 36.8; O2SAT 94
[2022-05-10] MEDS: sodium chloride 0.9% 1,000 ML 75 ML IV (03:43)
[2022-05-10 04:00] VITALS: BP 139/86; PULSE 67; RESP 17; TEMP 36.7; O2SAT 100
[2022-05-10 05:16] LABS: Basophils # 0.1 10^3/uL (0.0-0.1); Basophils % 1.2 %; Eosinophils # 0.3 10^3/uL (0.0-0.8); Eosinophils % 3.9 %; Hematocrit 45.7 % (42.0-52.0); Lymphocytes # 2.2 10^3/uL (0.8-4.8); Lymphocytes % 32.2 %; Mean Corpuscular HGB Conc 32.8 g/dL (30.0-36.0); Mean Corpuscular Hemoglobin 31.7 pg (28.0-34.0); Mean Corpuscular Volume 96.6 fl (80-94); Monocytes # 0.5 10^3/uL (0.2-0.9); Monocytes % 7.5 %; Neutrophils # 3.77 10^3/uL (1.8-7.7); Neutrophils % 54.8 %; Nucleated Red Blood Cells % 0 %; Platelet Count 227 10^3/cmm (130-400); Red Blood Count 4.73 10^6/uL (4.1-5.3); Red Cell Distribution Width 12.6 % (12.1-15.1); White Blood Count 6.9 10^3/uL (4.0-10.0)
[2022-05-10 05:42] LABS: Anion Gap 14.3 (5-19); Blood Urea Nitrogen 12 mg/dL (6-20); Calcium 8.8 mg/dL (8.5-10.5); Carbon Dioxide 23 mmol/L (22-29); Chloride 105 mmol/L (98-107); Glucose 88 mg/dL (65-115); Osmolality Calculated 285 mOsm/kg (285-295); Potassium 4.3 mmol/L (3.5-5.1); Sodium 138 mmol/L (136-145)
[2022-05-10 05:46] VITALS: PULSE 62
[2022-05-10] MEDS: regadenoson 0.4 Mg/5 ml Syringe IVP (07:28)
[2022-05-10 07:39] VITALS: BP 135/76; PULSE 82
[2022-05-10 08:44] VITALS: BP 138/79; PULSE 62; RESP 16; O2SAT 97
[2022-05-10] MEDS: aspirin 81 mg EC Tablet PO (09:24)
[2022-05-10] MEDS: pantoprazole DR 40 mg Tablet PO (09:24)
[2022-05-10] MEDS: lisinopril 10 mg Tablet PO (09:24)
--- NOTE | 2022-05-10 11:07 | P.DS_ITS ---
Discharge Providers Date of Admission: 05/08/22 23:41 Date of Discharge: May 10, 2022 Attending Provider at Admission: Librado Rodriguez MD Attending Provider at Discharge: Arcadio Woodson MD Diagnoses at Discharge Discharge Diagnosis (1) Chest pain: Status: Inactive (2) SVT (supraventricular tachycardia): Status: Inactive (3) Hypertension: Status: Inactive Reason for Visit Reason for Visit: cp Hospital Course Hospital Course 42 year old male with a past medical history of hypertension, who presents [facility] for chest pain, palpitations.On arrival in the ER he was found to be having SVT converted to normal sinus rhythm with Valsalva maneuver.Thereafter patient was in sinus rhythm, 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 Given the fact that the patient is given recurrent history of similar complaints though less severe in intensity, and given his significant smoking history as well as hypertension, 2D echo as well as nuclear stress test was done during the hospital stay: 2D echo showed: LV systolic function is normal with a EF of 55 to 60%. Mitral valve is thickened. Trace tricuspid regurgitation. Nuclear stress test:?Myocardial perfusion imaging is normal.Overall left ventricular systolic function is low normal without regional wall motion abnormalities, LVEF=53% During the hospital stay: Patient continued to remain in sinus rhythm, no similar event was noted on telemetry. Given the fact that the patient is complaining of similar events in the past, he has been discharged on event monitor, as well as metoprolol tartrate as needed for heart rate greater than 110.Appointment with primary care physician has also been made. Overall patient has responded well to above medical management and is being discharged in stable condition to home. Chest pain was likely precipitated by SVT event. Troponin leak was also related to SVT. Physical Exam Const: COMMON NORMALS: patient oriented x3 Chest: COMMONS NORMALS: normal inspection of the chest and normal palpation of entire chest wall CHEST: Yes Symmetrical chest wall rise Resp: COMMON NORMALS: normal respiratory effort, No retractions, No use of accessory muscles and clear to auscultation bilaterally EFFORT & INSPECTION: Yes symmetric chest movement AUSCULTATION: clear to auscultation bilaterally Cardio: COMMON NORMALS: regular rate, regular rhythm, S1 normal heart sound present, S2 normal heart sound present, No gallops present (Cardio), No murmurs present (Cardio), No rub (Cardio) and Peripheral pulses 2+ throughout RATE: regular rate RHYTHM: regular rhythm HEART SOUNDS: S1 normal heart sound present and S2 normal heart sound present PERIPHERAL PULSES: Peripheral pulses 2+ throughout GI: COMMON NORMALS: Normal to inspection, nondistended, normoactive bowel s ounds present, Soft to palpation, non-tender, No hepatosplenomegaly present and no masses AUSCULTATION: Yes normoactive bowel sounds PALPATION: Yes Soft to palpation and Yes No hepatosplenomegaly present RECTAL EXAM: Yes deferred Extremity: COMMON NORMALS: no clubbing, cyanosis or edema and no pedal edema Neuro: COMMON NORMALS: patient oriented x3 Discharge Data Studies Completed and Pending Completed Studies During Hospitalization Category Date Time Status Cardiac Stress Test MIBI [Sestamibi Stress Test Request Exams 05/09/22 11:49 Completed ] Routine XR chest 1V portable [id number] Stat Exams 05/08/22 20:19 Completed NM estiven perf SPECT r/s* [id number] Routine Nuc Med 05/10/22 11:49 Completed CV. echo complete* [id number] Stat Ultrasound 05/09/22 23:47 Completed Pending at discharge Category Date Time Status BMP [Basic Metabolic Panel] AM LABS Lab 05/11/22 04:00 Ordered BMP [Basic Metabolic Panel] AM LABS Lab 05/12/22 04:00 Ordered CBC Auto Diff [Complete Blood Count w/Auto] AM LABS Lab 05/11/22 04:00 Ordered CBC Auto Diff [Complete Blood Count w/Auto] AM LABS Lab 05/12/22 04:00 Ordered Radiology Impressions Chest X-Ray 05/08/22 20:19 IMPRESSION: No acute findings. Laboratory Results WBC 6.9 10^3/uL (4.0-10.0) 05/10/22 04:34 RBC 4.73 10^6/uL (4.1-5.3) 05/10/22 04:34 Hgb 15.0 g/dL (11.7-16.6) 05/10/22 04:34 Hct 45.7 % (42.0-52.0) 05/10/22 04:34 MCV 96.6 fl (80-94) H 05/10/22 04:34 MCH 31.7 pg (28.0-34.0) 05/10/22 04:34 MCHC 32.8 g/dL (30.0-36.0) 05/10/22 04:34 RDW 12.6 % (12.1-15.1) 05/10/22 04:34 Plt Count 227 10^3/cmm (130-400) 05/10/22 04:34 MPV 10.0 fL (7.4-10.4) 05/10/22 04:34 Neut % (Auto) 54.8 % 05/10/22 04:34 Lymph % (Auto) 32.2 % 05/10/22 04:34 [place] % (Auto) 7.5 % 05/10/22 04:34 Eos % (Auto) 3.9 % 05/10/22 04:34 Baso % (Auto) 1.2 % 05/10/22 04:34 Neut # (Auto) 3.77 10^3/uL (1.8-7.7) 05/10/22 04:34 Lymph # (Auto) 2.2 10^3/uL (0.8-4.8) 05/10/22 04:34 [place] # (Auto) 0.5 10^3/uL (0.2-0.9) 05/10/22 04:34 Eos # (Auto) 0.3 10^3/uL (0.0-0.8) 05/10/22 04:34 Baso # (Auto) 0.1 10^3/uL (0.0-0.1) 05/10/22 04:34 Nucleated RBC % (auto) 0 % 05/10/22 04:34 Nucleated RBCs # 0.0 /100WBC 05/10/22 04:34 Sodium 138 mmol/L (136-145) 05/10/22 04:34 Potassium 4.3 mmol/L (3.5-5.1) 05/10/22 04:34 Chloride 105 mmol/L (98-107) 05/10/22 04:34 Carbon Dioxide 23 mmol/L (22-29) 05/10/22 04:34 Anion Gap 14.3 (5-19) 05/10/22 04:34 BUN 12 mg/dL (6-20) 05/10/22 04:34 Creatinine 0.8 mg/dL (0.7-1.2) 05/10/22 04:34 GFR Calculation 105.0 mL/min (90-130) 05/10/22 04:34 Glucose 88 mg/dL (65-115) 05/10/22 04:34 Calculated Osmolality 285 mOsm/kg (285-295) 05/10/22 04:34 Calcium 8.8 mg/dL (8.5-10.5) 05/10/22 04:34 Magnesium 1.9 mg/dL (1.7-2.3) 05/08/22 20:03 Troponin T Baseline 16 ng/L (0-15) H 05/08/22 20:03 Troponin T 120 Minute 27.11 ng/L (0-15) H 05/08/22 21:57 Delta Troponin T 11.11 ABS# (0-10) H* 05/08/22 21:57 Troponin T Hi Sens 6Hr 26.52 ng/L (0-15) H 05/09/22 06:01 Troponin T Hi Sens 6Hr Delta 10.52 ng/L (0-12) 05/09/22 06:01 NT-Pro-B Natriuret Pep 42 pg/mL (0-125) 05/08/22 23:47 Triglycerides 149 mg/dL (0-150) 05/08/22 23:47 Cholesterol 167 mg/dL (0-200) 05/08/22 23:47 LDL Cholesterol, Calc 83 mg/dL (50-129) 05/08/22 23:47 HDL Cholesterol 54 mg/dL (60-100) L 05/08/22 23:47 LDL/HDL Ratio 1.54 RATIO (0.00-3.22) 05/08/22 23:47 Cholesterol/HDL Ratio 3.09 mg/dL (1.0-5.00) 05/08/22 23:47 TSH 2.37 uIU/mL (0.27-4.20) 05/08/22 23:47 Urine Opiates Screen Positive ng/mL (Negative) H 05/09/22 07:48 Ur Barbiturates Screen Negative ng/mL (Negative) 05/09/22 07:48 Ur Phencyclidine Scrn Negative ng/mL (Negative) 05/09/22 07:48 Ur Amphetamines Screen Positive ng/mL (Negative) H 05/09/22 07:48 U Benzodiazepines Scrn Negative ng/mL (Negative) 05/09/22 07:48 Urine Cocaine Screen Negative ng/mL (Negative) 05/09/22 07:48 U Marijuana (THC) Screen Negative ng/mL (Negative) 05/09/22 07:48 Vitals Last Vital Signs Temp 98.0 F 05/10/22 04:00 Pulse 62 05/10/22 08:44 Resp 16 05/10/22 08:44 BP 138/79 05/10/22 08:44 Pulse Ox 97 05/10/22 08:44 O2 Del Method 05/10/22 08:44 Discharge Plan Discharge Patient Disposition: Home Condition: Stable Prescriptions: New metoprolol tartrate 25 mg tablet 25 mg PO PRN Qty: 30 0RF Rx Instructions: For HR > 110 Continued lisinopril 10 mg tablet 10 mg PO DAILY 30 Days Qty: 30 3RF Discharge Orders: Discharge Order (Routine); Ordered 05/10/22 Ordered By: Arcadio Woodson Other Ambulatory Orders: MCT/Event Monitor 30 Days (Routine) Timeframe: 1 Week Facility: [facility] - Location: Radiology Ordered By: Arcadio Woodson Referrals: Matti De La Rosa DO [Physician] - 05/27/22 2:00 pm Patient Instructions: Opioid Safety Activity Restrictions/Additional Instructions: APPOINTMENT FOR HEART MONITOR FriMAY 15 AT 12:[address] [facility] Discharge Attestations Time Spent in Discharge Care*: less than 30 min Quality Metrics Clinical Quality Measures [ No reported AMI, CVA or VTE this stay] Coding Level of Care Code Acute Chg FW DC note Diagnoses Chest pain R07.9 SVT (supraventricular tachycardia) I47.1 Hypertension I10
--- NOTE | 2022-05-10 11:49 | NMCV_ITS ---
NM estiven perf SPECT r/s* [id number] Henrry Duffy Age: 42 Gender: M : 1980 Exam Date: 05/10/2022 11:49 Ordering Phys: Arcadio Woodson MD Technologist: BONG Suárez Exam Location: [facility] Indications: CHEST PAIN STRESS TEST Please see separate stress test report [facility] for full findings IMAGE PROTOCOL Rest/Stress 1 Lexiscan Day Radiopharmaceutical Dose (mCi) Administration Site Administered by Rest: Tc-99m 10.9 IV BONG Shah Sestamibi Stress:Tc-99m 32.6 IV BONG Shah Sestamibi Rest: 10-May-2022 60 Discovery 630 Stress: 10-May-2022 30 Discovery 630 0.4mg Lexiscan. Images obtained in supine and prone position. SPECT RESULTS Technical Quality: Excellent Raw Data Analysis: Normal Image Corrections: No attenuation or motion correction applied Summed Stress Score: 0 Summed Rest Score: 1 Summed Difference Score: 0 PERFUSION FINDINGS Small size perfusion abnormality of mild severity of apical septal wall on rest images with improved tracer uptake on stress images. This is suggestive of attenuation artifact. FUNCTIONAL RESULTS (calculated via Gated SPECT) Stress Image LV EF (%): 53 Stress EDV (mL):135 TID: 1.13 Stress ESV (mL):63 FUNCTIONAL FINDINGS: The left ventricle is normal in size. Transient Ischemia Dilatation of 1.1. There is normal left ventricular systolic function. The left ventricular ejection fraction is low normal with a value of 53%. There is normal left ventricular wall thickening. IMPRESSIONS 1. Myocardial perfusion imaging is normal. 2. Overall left ventricular systolic function is low normal without regional wall motion abnormalities, LVEF=53% 3. No EKG changes with Lexiscan infusion. Refer to separate report for details. Lesa Owen MD (Electronically Signed) Final Date: 10 May 2022 10:06 S
--- NOTE | 2022-05-10 11:55 | PC.NURSE ---
Patient given education and instructions to stop drug and nicotine abuse. Also given instructions to follow up at [facility] on 05/[address] Nath on 05/27. Patient verbalized understanding. Left at 1149. Ambulated to exit with significant other.
== END 2022-05-10 11:56 | disposition home or self-care (01) | DRG 310 ==
LOC: ER 05-09 03:01 → MEDSURG 05-09 17:26
PROVIDERS: Emergency Medicine; Admitting Provider Family Medicine; Emergency Provider Emergency Medicine; Visit Provider Internal Medicine
DX: I47.1 Supraventricular tachycardia (principal); I10 Essential (primary) hypertension; R06.02 Shortness of breath; F17.200 Nicotine dependence, unspecified, uncomplicated; R07.9 Chest pain, unspecified
CPT/HCPCS: 36415; 71045; 78452; 80048; 80061; 80306; 83735; 83880; 84443; 84484; 85025; 93005; 93306; 94664; 96365; 96372; 96375; 99285; A9500; G0378; J1650; J2270; J2785; J3475; J7030

== ENCOUNTER → 2022-06-13 11:49 | Outpatient (BNVA) | payer MEDICAID, SELFPAY | PROVIDERS: PCP Family Medicine; Visit Provider Family Medicine | DX: I10 Essential (primary) hypertension (principal); I47.1 Supraventricular tachycardia; F17.200 Nicotine dependence, unspecified, uncomplicated | CPT/HCPCS: 80048 ==

== ENCOUNTER 2022-07-31 17:30 | Emergency (ER) | payer MEDICAID, SELFPAY ==
[2022-07-31 18:00] VITALS: BP 162/110; PULSE 96; RESP 19; O2SAT 97; BMI 23.0
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
[2022-07-31 18:10] VITALS: RESP 21; O2SAT 99
[2022-07-31] MEDS: HYDROmorphone 1 mg/mL INJ 1 mL IVP (18:10)
[2022-07-31 18:46] VITALS: BP 164/101; PULSE 99; RESP 20; O2SAT 98
[2022-07-31] MEDS: iohexol 350 mg/mL 500 mL Btl (per mL) IV (18:51)
[2022-07-31] MEDS: ketorolac 30 mg/mL INJ 15 MG IVP (19:25)
--- NOTE | 2022-07-31 19:28 | XRR_ITS ---
PROCEDURE INFORMATION: Exam: XR Right Shoulder Exam date and time: 07/31/2022 7:32 PM Age: 42 years old Clinical indication: Pain; Shoulder; Right; Additional info: Injury TECHNIQUE: Imaging protocol: Radiologic exam of the Right shoulder. Views: 2 or more views. COMPARISON: CT chest abd pel w con* 07/31/2022 6:34 PM FINDINGS: Bones/joints: Normal. Soft tissues: Normal. XR/XR shoulder RT min 2V* [id number] IMPRESSION: No acute findings.
== END 2022-07-31 19:47 | disposition home or self-care (01) ==
PROVIDERS: Emergency Provider Emergency Medicine; PCP Family Medicine
DX: S13.4XXA Sprain of ligaments of cervical spine, initial encounter (principal); V89.2XXA Person injured in unspecified motor-vehicle accident, traffic, initial encounter
CPT/HCPCS: 70450; 71260; 72125; 73030; 74177; 96374; 96375; 99285; J1170; J1885; Q9967

== ENCOUNTER 2022-08-01 16:48 | Emergency (ER) | payer MEDICAID, SELFPAY ==
[2022-08-01 17:02] VITALS: BP 165/110; PULSE 101; RESP 19; TEMP 36.6; O2SAT 100; BMI 23.0
--- NOTE | 2022-08-01 17:05 | ECG_ITS ---
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 Measurements Intervals [place] Rate: 102 P: 76 FL: 138 QRS: 85 QRSD: 106 T: 60 QT: 347 QTc: 452 Interpretive Statements SINUS TACHYCARDIA Compared to ECG 05/08/2022 22:31:21 Sinus rhythm no longer present Electronically Signed On 08-02-2022 13:12:28 WATER TESTER by Lesa Owen M.D. [email or web address]/store/NU/[id number]
== END 2022-08-01 18:14 | disposition left against medical advice (07) ==
PROVIDERS: Emergency Provider Family Medicine; PCP Family Medicine
DX: Z53.21 Procedure and treatment not carried out due to patient leaving prior to being seen by health care provider (principal)
CPT/HCPCS: 93005; 99283

== ENCOUNTER 2022-08-02 16:21 | Emergency (ER) | payer MEDICAID, SELFPAY ==
[2022-08-02 16:25] VITALS: BP 188/111; PULSE 97; RESP 14; TEMP 36.4; O2SAT 99; BMI 23.0
[2022-08-02 16:49] VITALS: BP 164/103; PULSE 90; RESP 14; O2SAT 98
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
[2022-08-02] MEDS: ketorolac 30 mg/mL INJ IM (17:58)
[2022-08-02 17:59] VITALS: RESP 19
[2022-08-02] MEDS: HYDROmorphone 1 mg/mL INJ 1 mL IM (17:59)
[2022-08-02 18:15] VITALS: BP 142/74; PULSE 91; RESP 18; O2SAT 98
== END 2022-08-02 18:18 | disposition home or self-care (01) ==
PROVIDERS: Emergency Provider Nurse Practitioner Family; PCP Family Medicine
DX: S13.4XXA Sprain of ligaments of cervical spine, initial encounter (principal); V89.2XXA Person injured in unspecified motor-vehicle accident, traffic, initial encounter
CPT/HCPCS: 96372; 99284; J1170; J1885

== ENCOUNTER 2023-02-07 13:06 | Emergency (ER) | payer MEDICAID, SELFPAY ==
[2023-02-07 13:12] VITALS: BP 174/85; PULSE 95; RESP 14; TEMP 36.6; O2SAT 97; BMI 24.4
--- NOTE | 2023-02-07 13:26 | CT_ITS ---
WS: [id number] CT HEAD NONCONTRAST HISTORY: dizziness TECHNIQUE: Contiguous axial imaging performed through the brain in 2.5 mm imaging. Bone and soft tiss ue windows. Sagittal and coronal reformats reviewed. All CT scans at [facility] use at least one of these dose optimization techniques: automated exposure control; mA and/or kV adjustment per pa tient size (includes targeted exams where dose is matched to clinical indication); or iterative recon struction. DLP: 1083.58 mGy.cm COMPARISON: 07/31/2022 No acute intracranial hemorrhage, midline shift or mass effect. No atrophy or prior infarcts or herniation. Ventricles: Normal size with no hydrocephalus. Paranasal sinuses: As visualized are clear. Mastoid air cells: Well pneumatized. Calvarium and scalp: Skull is intact with no soft tissue edema or swelling. CT/CT head wo con* [id number] IMPRESSION: Negative head CT.
--- NOTE | 2023-02-07 13:27 | ECG_ITS ---
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 Measurements Intervals [place] Rate: 67 P: 67 [place]: 157 QRS: 47 QRSD: 102 T: 1 QT: 433 QTc: 458 Interpretive Statements SINUS RHYTHM POSSIBLE LEFT ATRIAL ENLARGEMENT [-0.1mV P-WAVE IN V1/V2] NONSPECIFIC ST & T-WAVE ABNORMALITY Compared to ECG 02/07/2023 13:33:10 T-wave abnormality now present Electronically Signed On 02-07-2023 15:14:33 CDT by Santiago Downey M.D. [id number]
--- NOTE | 2023-02-07 13:27 | ECG_ITS ---
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 Measurements Intervals [place] Rate: 84 P: 74 NM: 148 QRS: 87 QRSD: 102 T: 72 QT: 360 QTc: 428 Interpretive Statements SINUS RHYTHM Compared to ECG 08/01/2022 17:05:22 Sinus tachycardia no longer present Electronically Signed On 02-07-2023 15:14:36 CDT by Santiago Downey M.D. [id number]
[2023-02-07 13:38] VITALS: BP 130/82; BP 139/86; BP 142/86; PULSE 92; PULSE 94; PULSE 99; RESP 14; O2SAT 97
[2023-02-07 13:43] LABS: Basophils # 0.1 10^3/uL (0.0-0.1); Basophils % 0.9 %; Eosinophils # 0.2 10^3/uL (0.0-0.8); Eosinophils % 2.7 %; Hematocrit 44.8 % (42.0-52.0); Hemoglobin 15.5 g/dL (11.7-16.6); Lymphocytes # 2.1 10^3/uL (0.8-4.8); Lymphocytes % 29.5 %; Mean Corpuscular HGB Conc 34.6 g/dL (30.0-36.0); Mean Corpuscular Hemoglobin 32.2 pg (28.0-34.0); Mean Corpuscular Volume 93.1 fl (80-94); Monocytes # 0.5 10^3/uL (0.2-0.9); Monocytes % 7.8 %; Neutrophils # 4.08 10^3/uL (1.8-7.7); Neutrophils % 58.7 %; Nucleated Red Blood Cells % 0 %; Platelet Count 270 10^3/cmm (130-400); Red Blood Count 4.81 10^6/uL (4.1-5.3); Red Cell Distribution Width 12.9 % (12.1-15.1)
[2023-02-07 13:45] LABS: Erythrocyte Sedimentation Rate 7 mm/hr (0-10)
[2023-02-07] MEDS: sodium chloride 0.9% 1,000 ML 999 ML IV (13:45)
[2023-02-07] MEDS: meclizine 25 mg tablet 50 MG PO (13:45)
[2023-02-07 13:52] LABS: Troponin(5th) Baseline 10 ng/L (0-15)
[2023-02-07 13:59] LABS: Alanine Aminotransferase 55 U/L (0-41); Albumin Level 4.2 g/dL (3.5-5.2); Alkaline Phosphatase 86 U/L (40-130); Anion Gap 13.9 (5-19); Aspartate Amino Transferase 35 U/L (0-40); Blood Urea Nitrogen 13 mg/dL (6-20); Calcium 8.8 mg/dL (8.5-10.5); Carbon Dioxide 27 mmol/L (22-29); Chloride 104 mmol/L (98-107); Globulin 2.5 g/dL (1.3-4.6); Glucose 111 mg/dL (65-115); Osmolality Calculated 293 mOsm/kg (285-295); Potassium 3.9 mmol/L (3.5-5.1); Sodium 141 mmol/L (136-145); Thyroid Stimulating Hormone 0.99 uIU/mL (0.27-4.20); Total Bilirubin 0.4 mg/dL (0.15-1.2); Total Protein 6.7 g/dL (6.6-8.7)
--- NOTE | 2023-02-07 14:54 | W.ED.DIZZY ---
HPI - Dizziness General: Chief Complaint: Dizziness Stated Complaint: dizziness, rt ear pain, rt tooth pain, nausea Time Seen by Provider: 02/07/23 13:19 Source: patient Mode of arrival: ambulatory Limitations: no limitations History of Present Illness: HPI Narrative: Patient presents to the emergency department today for evaluation treatment of dizziness. Patient reports episodes of dizziness off and on now for 1 to 2 months. He states he only gets dizziness once every few days. He states he notices it happens when he gets up but, will sometimes happen for no reason. He reports feeling like the room is spinning and is worse when he has his eyes open. Symptoms can be improved with his eyes closed. Patient denies any recent illness such as gastroenteritis resulting in vomiting or diarrhea. He denies fevers. He denies ear pain but states his right ear feels like it has pressure in it. He also has chronic dental issues and thinks he may have an active infection to his right lower jawline. Patient's chart review shows he has had evaluation for cardiac issues in the past and has been put on metoprolol but denies any shortness of breath or chest pain during these episodes. Review of Systems General: Reports: 10 or more systems reviewed and unremarkable except in HPI and below PFSH ED PFSH: Medical History Chest pain Hypertension SVT (supraventricular tachycardia) Tobacco use disorder, moderate, dependence Surgical History History of cholecystectomy History of hernia repair No significant past surgical history Family History Father CAD (coronary artery disease) Grandfather CAD (coronary artery disease) Cancer Family/Other CAD (coronary artery disease) Mother Diabetes Other Family history of premature coronary artery disease Denies family history of Clotting disorder Dementia Hyperlipidemia Chronic kidney disease (CKD) Anesthesia complication Bleeding disorder Lung disease Hypertension Stroke Social History Smoking and tobacco status: current some day smoker (1ppd) cigarettes [ Other cigarette details: down to 2-3 cigs/day and other days none] Smoking risk assessment/counseling performed?: No Alcohol intake: former Desire information about alcohol rehabilitation?: No Counseling given: No Substance/Drug Use: former 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 He answers his own history. He does keep his eyes closed during most of the exam and is semireclined in the bed. HENMT: OTHER: Patient has chronically poor dentition with multiple broken and cracked teeth. No significant signs of gumline swelling indicative of active dental abscess. No facial swelling. Right TM with fluid present and slight bulging but, good light reflex and no signs of purulent accumulation. EACs clear. Eye: OTHER: Patient has constricted pupils bilaterally with minimal response to light. No nystagmus appreciated. Patient was only able to tolerate his eyes being open very briefly during examination Resp: COMMON NORMALS: normal respiratory effort, No retractions, No use of accessory muscles and clear to auscultation bilaterally AUSCULTATION: clear to auscultation bilaterally Cardio: COMMON NORMALS: regular rate and regular rhythm RATE: regular rate RHYTHM: regular rhythm GI: COMMON NORMALS: Normal to inspection, nondistended, normoactive bowel sounds present and Soft to palpation PALPATION: Yes Soft to palpation Extremity: NARRATIVE EXTREMITY EXAM: Patient with full range of motion appreciated to the extremities. Patient demonstrates ability to flex and extend and move his neck without difficulty. Neuro: COMMON NORMALS: patient oriented x3, CN's II-XII intact bilaterally and moves all extremities Psych: COMMON NORMALS: mental status grossly normal, Normal thought process present, speech normal and activity/motor behavior normal SPEECH: Yes normal speech THOUGHT PROCESS: Normal thought process present Course Vital Signs: Vital signs: Vital Signs Temperature 98 F 02/07/23 13:12 Pulse Rate 94 02/07/23 13:38 Respiratory Rate 14 02/07/23 13:38 Blood Pressure 142/86 02/07/23 13:38 Pulse Oximetry 97 02/07/23 13:38 Oxygen Delivery Me thod Room Air 02/07/23 13:38 MDM - Dizziness Medical Decision Making Patient's lab work is unremarkable. No signs of elevated white blood cell count, anemia, electrolyte imbalance, or dehydration. Patient's urine drug screen did test positive for amphetamines but, EKG shows no acute concerns including any issues with tachycardia. Patient was treated for vertigo here in the emergency department and, on reevaluation was noted to be much improved. Explained to him his CT scan was negative for any concerns for masses or lesions in the brain-especially in the balance portion. That reason I did recommend you follow-up with ENT to discuss vertigo. Patient was given medication to help with his vertigo as well as the referral and, as he has concerns for onset of a dental infection, antibiotics were started as well. He was given strict return precautions and went over signs and symptoms of neurological deficit including signs of stroke. Patient verbalizes understanding and agreement to the treatment plan. Differential Diagnosis Likely benign paroxysmal positional vertigo, cerebrovascular accident and transient cerebral ischemia Lab Data 02/07/23 13:23 02/07/23 13: Radiology Impressions Head CT 02/07/23 13: IMPRESSION: Negative head CT. Laboratory Results WBC 7.0 10^3/uL (4.0-10.0) 02/07/23 13: RBC 4.81 10^6/uL (4.1-5.3) 02/07/23 13: Hgb 15.5 g/dL (11.7-16.6) 02/07/23 13: Hct 44.8 % (42.0-52.0) 02/07/23 13: MCV 93.1 fl (80-94) 02/07/23 13: MCH 32.2 pg (28.0-34.0) 02/07/23 13: MCHC 34.6 g/dL (30.0-36.0) 02/07/23 13: RDW 12.9 % (12.1-15.1) 02/07/23 13: Plt Count 270 10^3/cmm (130-400) 02/07/23 13: MPV 10.0 fL (7.4-10.4) 02/07/23 13: Neut % (Auto) 58.7 % 02/07/23 13: Lymph % (Auto) 29.5 % 02/07/23 13:23 [place] % (Auto) 7.8 % 02/07/23 13:23 Eos % (Auto) 2.7 % 02/07/23 13:23 Baso % (Auto) 0.9 % 02/07/23 13:23 Neut # (Auto) 4.08 10^3/uL (1.8-7.7) 02/07/23 13:23 Lymph # (Auto) 2.1 10^3/uL (0.8-4.8) 02/07/23 13:23 [place] # (Auto) 0.5 10^3/uL (0.2-0.9) 02/07/23 13:23 Eos # (Auto) 0.2 10^3/uL (0.0-0.8) 02/07/23 13:23 Baso # (Auto) 0.1 10^3/uL (0.0-0.1) 02/07/23 13:23 Nucleated RBC % (auto) 0 % 02/07/23 13:23 Nucleated RBCs # 0.0 /100WBC 02/07/23 13:23 ESR 7 mm/hr (0-10) 02/07/23 13:23 Sodium 141 mmol/L (136-145) 02/07/23 13:23 Potassium 3.9 mmol/L (3.5-5.1) 02/07/23 13:23 Chloride 104 mmol/L (98-107) 02/07/23 13:23 Carbon Dioxide 27 mmol/L (22-29) 02/07/23 13:23 Anion Gap 13.9 (5-19) 02/07/23 13:23 BUN 13 mg/dL (6-20) 02/07/23 13:23 Creatinine 0.8 mg/dL (0.7-1.2) 02/07/23 13:23 GFR Calculation 105.0 mL/min (90-130) 02/07/23 13:23 Glucose 111 mg/dL (65-115) 02/07/23 13:23 Calculated Osmolality 293 mOsm/kg (285-295) 02/07/23 13:23 Calcium 8.8 mg/dL (8.5-10.5) 02/07/23 13:23 Total Bilirubin 0.4 mg/dL (0.15-1.2) 02/07/23 13:23 AST 35 U/L (0-40) 02/07/23 13:23 ALT 55 U/L (0-41) H 02/07/23 13:23 Alkaline Phosphatase 86 U/L (40-130) 02/07/23 13:23 Troponin T Baseline 10 ng/L (0-15) 02/07/23 13:23 Troponin T 120 Minute 9.32 ng/L (0-15) 02/07/23 15:27 Delta Troponin T -0.68 ABS# (0-10) L 02/07/23 15:27 C-Reactive Protein 3.0 mg/L (0.0-4.9) 02/07/23 13:23 Total Protein 6.7 g/dL (6.6-8.7) 02/07/23 13: Albumin 4.2 g/dL (3.5-5.2) 02/07/23 13:23 Globulin 2.5 g/dL (1.3-4.6) 02/07/23 13:23 TSH 0.99 uIU/mL (0.27-4.20) 02/07/23 13:23 Urine Color Yellow (Yellow) 02/07/23 15:15 Urine Appearance Clear (CLEAR) 02/07/23 15:15 Urine pH 5 (5-7) 02/07/23 15:15 Ur Specific [place] 1.025 (1.005-1.030) 02/07/23 15:15 Urine Protein Neg (Negative) 02/07/23 15:15 Urine Glucose (UA) Trace (Normal) H 02/07/23 15:15 Urine Ketones Negative (Negative) 02/07/23 15:15 Urine Blood Neg (Negative) 02/07/23 15:15 Urine Nitrate Negative (Negative) 02/07/23 15:15 Urine Bilirubin Neg (Negative) 02/07/23 15:15 Urine Urobilinogen Norm mg/dL (Negative) 02/07/23 15:15 Ur Leukocyte Esterase Negative (Negative) 02/07/23 15:15 Urine Opiates Screen Negative ng/mL (Negative) 02/07/23 15:15 Ur Barbiturates Screen Negative ng/mL (Negative) 02/07/23 15:15 Ur Phencyclidine Scrn Negative ng/mL (Negative) 02/07/23 15:15 Ur Amphetamines Screen Positive ng/mL (Negative) H 02/07/23 15:15 U Benzodiazepines Scrn Negative ng/mL (Negative) 02/07/23 15:15 Urine Cocaine Screen Negative ng/mL (Negative) 02/07/23 15:15 U Marijuana (THC) Screen Negative ng/mL (Negative) 02/07/23 15:15 Discharge Plan Discharge Patient Disposition: Home Clinical Impression: Dizziness Condition: Stable Prescriptions: New meclizine 25 mg tablet 25 mg PO TID PRN (Reason: dizziness) Qty: 30 0RF amoxicillin-pot clavulanate 875-125 mg tablet 1 tab PO BID Qty: 10 0RF No Action albuterol sulfate 90 mcg/actuation HFA aerosol inhaler 1 inh inhalation QID PRN (Reason: shortness of breath or wheezing) Qty: 8.5 0RF metoprolol tartrate 25 mg tablet 25 mg PO BID Qty: 180 1RF lisinopril 10 mg tablet 10 mg PO DAILY Qty: 90 1RF budesonide-formoterol [Symbicort] 80-4.5 mcg/actuation HFA aerosol inhaler 2 puff inhalation BID Qty: 10.2 2RF omeprazole 40 mg capsule,delayed release(DR/EC) 40 mg PO DAILY Qty: 30 1RF bupropion HCl [Wellbutrin XL] 300 mg tablet extended release 24 hr 300 mg PO QAM Qty: 90 1RF Discharge Orders: Discharge ED (Routine); Ordered 02/07/23 Ordered By: Heena Keene Referrals: Sarkis Garza MD [Primary Care Provider] - Discharge Diet: Usual diet Discharge Activity: Increase activity as tolerated Patient Instructions: Dizziness (ED) Activity Restrictions/Additional Instructions: Evaluation today was able to rule out an active cardiac concern for your dizziness symptoms. The CT scan of your head revealed no issues with the balance center of your brain and shows no concerns for mass or lesion. Lab work shows no acute infection and no anemia. Your electrolytes are within normal limits and you do not show signs of dehydration. Based on our ability to rule out these significant concerns, we can now work towards treatment of vertigo due to inner ear issue. I have requested a follow-up for you by the underwear cutter to further monitor recurrent issues with vertigo. I have also prescribed you some medication which can help with dizziness symptoms. Due to recurrent issues with infections of your teeth and, complaints of pain to your right lower jaw I am providing you antibiotics to start to prevent development of a dental abscess. We still recommend you follow-up with a dentist for definitive care of dental infections both acute and recurrent. If you develop dizziness without ability to stand and resulting in multiple episodes of vomiting concerning for development of dehydration or, if you develop the worst headache of your life, one-sided facial droop or numbness, one-sided your body with weakness or numbness, change or loss of your vision you need to be seen and reevaluated here in the emergency department immediately. Coding Level of Care Code ED Manufacturing Group Leader for Jerome Bennett
[2023-02-07 15:19] LABS: Add Urine Microscopic? NO; Charge for UA Resulting for Rev
[2023-02-07 15:25] LABS: Bilirubin Urine Neg (Negative); Blood Urine Neg (Negative); Glucose Urine UA Trace (Normal); Ketones Urine Negative (Negative); Leukocyte Esterase Urine Negative (Negative); Nitrate Urine Negative (Negative); Protein Urine Neg (Negative); Specific Gravity, Urine 1.025 (1.005-1.030); Urine Appearance Clear (CLEAR); Urine Color Yellow (Yellow); Urobilinogen Urine Norm (Negative); pH Urine 5 (5-7)
[2023-02-07 15:34] LABS: Amphetamines Screen Urine Positive (Negative); Barbiturates Screen Urine Negative (Negative); Benzodiazepines Screen Urine Negative (Negative); Cocaine Screen Urine Negative (Negative); Opiate Screen Urine Negative (Negative); PCP Screen Urine Negative (Negative); THC Screen Urine Negative (Negative)
[2023-02-07 15:50] LABS: Troponin 5 2HR 9.32 ng/L (0-15)
[2023-02-07 16:10] LABS: Troponin 5 2HR Delta -0.68 ABS# (0-10)
--- NOTE | 2023-02-09 05:18 | DCPLANNER ---
Addendum entered by Cyndi Wade 03/20/23 10:01: Patient attended appointment at ENT. Addendum entered by Cyndi Wade 02/14/23 15:09: Patient has a follow up appointment scheduled for Sunday, March 05, 2023 at 9:[address] Akhtar at ENT. Original Note: clinic office manager had message to schedule a follow up appointment for patient with ENT. clinic office manager sent patients information to the front office staff at ENT. Patients information will be printed and reviewed. Clinic will call patient with appointment information.
== END 2023-02-07 15:47 | disposition home or self-care (01) ==
PROVIDERS: Emergency Provider Physician Assistant; PCP Family Medicine
DX: R42 Dizziness and giddiness (principal); F17.210 Nicotine dependence, cigarettes, uncomplicated; I10 Essential (primary) hypertension
CPT/HCPCS: 70450; 80053; 80306; 81003; 84443; 84484; 85025; 85651; 86140; 93005; 96360; 96361; 99285; J7030; J8597

== ENCOUNTER 2024-07-08 14:46 | Emergency (ER) | payer MEDICAID, SELFPAY ==
[2024-07-08 14:47] VITALS: BP 131/61; PULSE 91; RESP 16; TEMP 36.7; O2SAT 97; BMI 24.4
--- NOTE | 2024-07-08 14:50 | ECG_ITS ---
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 Measurements Intervals [place] Rate: 91 P: 70 [place]: 148 QRS: 90 QRSD: 102 T: 73 QT: 340 QTc: 419 Interpretive Statements SINUS RHYTHM POSSIBLE LEFT ATRIAL ENLARGEMENT [-0.1mV P-WAVE IN V1/V2] Compared to ECG 02/07/2023 13:43:47 T-wave abnormality no longer present Electronically Signed On 07-08-2024 21:21:23 COPY MANAGER by Howard Hernandez M.D. [email or web address]
--- NOTE | 2024-07-08 14:53 | XR_ITS ---
WS: [id number] Portable AP upright chest, 07/08/2024 Clinical Data: chest pain Comparison: Portable chest, 05/08/2022 Findings: No nodules, masses or effusions are seen. The heart is normal. The pulmonary vascularity is not increased. No pneumonia or pneumothorax is seen. Monitor leads are on the chest wall. There is a n anterior cervical disc fusion. XR/XR chest 1V portable [id number] Impression: Negative chest.
--- NOTE | 2024-07-08 15:00 | ED_ITS ---
HPI - Chest Pain 2 General: Chief Complaint: Chest Pain Stated Complaint: cp Time Seen by Provider: 07/08/24 14:53 Source: patient Mode of arrival: EMS Limitations: no limitations History of Present Illness: Patient is a 44-year-old male who presents to ED today with a complaint of chest pain. Patient states his chest started bothering him around 8 AM this morning. It was intermittent since onset. He was reportedly at the [facility] and the credit collections manager called an ambulance. Patient states he is not having any chest pain upon arrival. His vital signs are stable. Medications include lisinopril and metoprolol. He states he takes the metoprolol for SVT. Patient denies any feelings of palpitations or racing heart rate today. Patient states he has had previous cardiac testing. Myocardial perfusion imaging in 2021 was normal. His last EF was estimated at 55 to 60%. Again, upon arrival he is currently rating his pain at a 0/10. MD complaint: chest pain Onset (ago): hour(s) Timing of current episode: episodic Prior episodes: Yes Onset: during rest Pain location: left chest Pain radiation: none Pain scale (0-10): 0 Relieving factors: nothing Exacerbating factors: nothing Associated symptoms: Reports no associated symptoms; Deny abdominal pain, dyspnea, fever(s), nausea, palpitations, syncope or vomiting Treatment prior to arrival: none Risk Factors: Coronary artery disease risk factors: smoking history and hypertension Thoracic aortic dissection risk factors: none Related Data Previous Rx's Medication Instructions Recorded omeprazole 40 mg capsule,delayed 40 mg PO DAILY #30 caps 03/25/23 release albuterol sulfate 90 mcg/actuation 1 inh inhalation QID PRN shortness 04/04/23 aerosol inhaler of breath or wheezing #8.5 grams budesonide-formoterol HFA 80 2 puff inhalation BID #10.2 grams 06/22/24 mcg-4.5 mcg/actuation aerosol inhaler (Symbicort) lisinopril 10 mg tablet 10 mg PO DAILY #30 tabs 06/22/24 metoprolol tartrate 25 mg tablet 25 mg PO BID #60 tabs 06/22/24 Allergies Allergy/AdvReac Type Severity Reaction Status Date / Time No Known Allergies Allergy Verified 04/04/23 15:30 Review of Systems 2 Const: Denies: fever(s), chills, body aches, fatigue or malaise Eyes: Denies: change in vision or blurry vision Card: Reports: chest pain (subsided now); Denies: palpitations, irregular heart rhythm, edema, swelling of feet/ankles, lightheadedness, syncope, pre-syncope, dyspnea on exertion, orthopnea, leg pain with exertion or acrocyanosis Resp: Denies: dyspnea, productive cough, non-productive cough or pain on inspiration GI: Denies: abdominal pain, nausea, vomiting, heartburn or diarrhea : Denies: difficulty urinating or dysuria Musc: Denies: neck pain, back pain, extremity pain, extremity swelling, joint pain, joint swelling or joint redness Skin/Breast: Denies: rash Neuro: Denies: headache(s), numbness in extremities, weakness in extremities, sensory changes or difficulty walking PFSH ED 2 PFSH: Medical History Tobacco use disorder, moderate, dependence SVT (supraventricular tachycardia) Chest pain Hypertension Surgical History History of cholecystectomy History of hernia repair No significant past surgical history Family History Father CAD (coronary artery disease) Grandfather CAD (coronary artery disease) Cancer Family/Other CAD (coronary artery disease) Mother Diabetes Other Family history of premature coronary artery disease Denies family history of Clotting disorder Dementia Hyperlipidemia Chronic kidney disease (CKD) Anesthesia complication Bleeding disorder Lung disease Hypertension Stroke Social History Smoking and tobacco/nicotine status: current some day tobacco/nicotine user (1ppd) cigarettes [ Other cigarette details: down to 2-3 cigs/day and other days none] Alcohol intake: former Substance/Drug Use: former 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, quit 1yr ago Adopted: Yes Caregiver/support person: No Lives independently: Yes Marital status: Single Current occupational status: employed 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 occupational exposures/hazards: Yes Current gender identity: Male Special ren needs: No Agree to transfusion: Yes Physical Exam 2 Const: COMMON NORMALS: no acute distress, average body habitus, patient oriented x3, no limitations, alert and well nourished GENERAL APPEARANCE: c ooperative ORIENTATION/CONSCIOUSNESS: Yes awake, Yes oriented to person, Yes oriented to place and Yes oriented to time HENMT: COMMON NORMALS: normocephalic and atraumatic HEAD & SCALP: n ormocephalic and atraumatic TEETH & GINGIVA: Yes caries and Yes poor dentition Neck/C-Spine: COMMON NORMALS: full ROM, no lymphadenopathy, supple and no meningeal signs Chest: COMMONS NORMALS: normal inspection of the chest and normal palpation of entire chest wall Resp: COMMON NORMALS: normal respiratory effort and clear to auscultation bilaterally AUSCULTATION: clear to auscultation bilaterally Cardio: COMMON NORMALS: regular rate and regular rhythm RATE: regular rate RHYTHM: regular rhythm GI: COMMON NORMALS: Normal to inspection, nondistended, normoactive bowel sounds present, Soft to palpation, non-tender, No hepatosplenomegaly present and no masses PALPATION: Yes Soft to palpation and Yes No hepatosplenomegaly present : COMMON NORMALS: Yes no CVA tenderness BLADDER/KIDNEY EXAM: Yes no CVA tenderness Back/Pelvis: COMMON NORMALS: no CVA tenderness and thoracic and lumbar spine normal to inspection Extremity: COMMON NORMALS: normal to inspection, capillary refill normal, no clubbing, cyanosis or edema, no calf tenderness and no pedal edema GENERAL: Y es normal exam except as noted Neuro: TAWNYA COMA SCALE: document GCS findings Tawnya coma scale eye opening: Spontaneous Tawnya coma scale verbal response: Orientated Tawnya coma scale motor response: Obey commands Tawnya coma scale total score: 15 COMMON NORMALS: patient oriented x3, moves all extremities, no focal motor deficits and no sensory deficits noted SENSORIUM/ORIENTATION: Yes alert, Yes oriented to person, Yes oriented to place and Yes oriented to time MENINGEAL SIGNS: Yes no meningeal signs Skin: COMMON NORMALS: no rashes or lesions noted GENERAL SKIN EXAM: no rashes or lesions noted Course 2 Vital Signs: Vital signs: Vital Signs Temperature 98.1 F 07/08/24 14:47 Pulse Rate 76 07/08/24 15:30 Respiratory Rate 16 07/08/24 14:47 Blood Pressure 120/76 07/08/24 15:30 Pulse Oximetry 95 07/08/24 15:30 Oxygen Delivery Me thod Room Air 07/08/24 15:30 MDM - Chest Pain Medical Decision Making Patient here with episodes of chest pain beginning around 8 AM this morning. Upon arrival to the emergency department he was pain-free and has rated his pain at a 0/10 throughout his almost 3-hour ER stay. Patient's baseline and repeat troponins are normal. His EKGs are nonischemic. CXR is unremarkable. Remainder of blood work is nonactionable. Patient has follow-up with primary care next week. Return to ED precautions given. Medical Records I reviewed the patient's medical records. Lab Data I reviewed the patient's lab results. 07/08/24 15:04 07/08/24 15:04 Radiology Impressions Chest X-Ray 07/08/24 14:53 Impression: Negative chest. Laboratory Results WBC 10.61 10^3/uL (3.29-11.43) 07/08/24 15:04 RBC 5.29 10^6/uL (3.85-5.65) 07/08/24 15:04 Hgb 16.80 g/dL (11.27-16.99) 07/08/24 15:04 Hct 48.3 % (37-53) 07/08/24 15:04 MCV 91.3 fl (82-101) 07/08/24 15:04 MCH 31.8 pg (27-33) 07/08/24 15:04 MCHC 34.8 g/dL (30-55) 07/08/24 15:04 RDW 12.4 % (12.1-15.1) 07/08/24 15:04 Plt Count 305 10^3/cmm (157-399) 07/08/24 15:04 MPV 9.1 fL (7.4-10.4) 07/08/24 15:04 Neut % (Auto) 68.5 % 07/08/24 15:04 Lymph % (Auto) 21.7 % 07/08/24 15:04 [place] % (Auto) 6.8 % 07/08/24 15:04 Eos % (Auto) 1.7 % 07/08/24 15:04 Baso % (Auto) 0.8 % 07/08/24 15:04 Neut # (Auto) 7.27 10^3/uL (1.8-7.7) 07/08/24 15:04 Lymph # (Auto) 2.3 10^3/uL (0.8-4.8) 07/08/24 15:04 [place] # (Auto) 0.7 10^3/uL (0.2-0.9) 07/08/24 15:04 Eos # (Auto) 0.2 10^3/uL (0.0-0.8) 07/08/24 15:04 Baso # (Auto) 0.1 10^3/uL (0.0-0.1) 07/08/24 15:04 Nucleated RBC % (auto) 0 % 07/08/24 15:04 Nucleated RBCs # 0.0 /100WBC 07/08/24 15:04 Sodium 136 mmol/L (136-145) 07/08/24 15:04 Potassium 4.4 mmol/L (3.5-5.1) 07/08/24 15:04 Chloride 99 mmol/L (98-107) 07/08/24 15:04 Carbon Dioxide 27 mmol/L (22-29) 07/08/24 15:04 Anion Gap 14.4 (5-19) 07/08/24 15:04 BUN 16 mg/dL (6-20) 07/08/24 15:04 Creatinine 0.8 mg/dL (0.7-1.2) 07/08/24 15:04 GFR Calculation 104.1 mL/min (90-130) 07/08/24 15:04 Glucose 88 mg/dL (65-115) 07/08/24 15:04 Calculated Osmolality 283 mOsm/kg (285-295) L 07/08/24 15:04 Calcium 8.6 mg/dL (8.5-10.5) 07/08/24 15:04 Total Bilirubin 0.5 mg/dL (0.15-1.2) 07/08/24 15:04 AST 36 U/L (0-40) 07/08/24 15:04 ALT 65 U/L (0-41) H 07/08/24 15:04 Alkaline Phosphatase 82 U/L (40-130) 07/08/24 15:04 Troponin T Baseline 10 ng/L (0-15) 07/08/24 15:04 Troponin T 120 Minute 10.14 ng/L (0-15) 07/08/24 16:46 Delta Troponin T 0.14 ABS# (0-10) 07/08/24 16:46 Total Protein 7.8 g/dL (6.6-8.7) 07/08/24 15:04 Albumin 4.5 g/dL (3.5-5.2) 07/08/24 15:04 Globulin 3.3 g/dL (1.3-4.6) 07/08/24 15:04 All radiology interpretation(s) finalized by discharge Discharge Plan Discharge Patient Disposition: Home Clinical Impression: Chest pain Qualifiers: Chest pain type: other chest pain Qualified Code(s): R07.89 - Other chest pain Condition: Stable Prescriptions: No Action albuterol sulfate 90 mcg/actuation HFA aerosol inhaler 1 inh inhalation QID PRN (Reason: shortness of breath or wheezing) Qty: 8.5 4RF omeprazole 40 mg capsule,delayed release(DR/EC) 40 mg PO DAILY Qty: 30 1RF lisinopril 10 mg tablet 10 mg PO DAILY Qty: 30 0RF metoprolol tartrate 25 mg tablet 25 mg PO BID Qty: 60 0RF budesonide-formoterol [Symbicort] 80-4.5 mcg/actuation HFA aerosol inhaler 2 puff inhalation BID Qty: 10.2 0RF Discharge Orders: Discharge ED (Routine); Ordered 07/08/24 Ordered By: Yumiko Cohn Referrals: Sarkis Garza MD [Primary Care Provider] - Activity Restrictions/Additional Instructions: As we discussed, you need to follow-up with your primary care provider as scheduled. Please return to the emergency department for further episodes of chest pain, shortness of breath, difficulty breathing, palpitations, racing heart rate, generally feeling worse or unwell, or any other concerns you may have. Coding Level of Care Code ED Licensed Audiologist for Jerome Bennett
[2024-07-08 15:12] LABS: Basophils # 0.1 10^3/uL (0.0-0.1); Basophils % 0.8 %; Eosinophils # 0.2 10^3/uL (0.0-0.8); Eosinophils % 1.7 %; Hematocrit 48.3 % (37-53); Lymphocytes # 2.3 10^3/uL (0.8-4.8); Lymphocytes % 21.7 %; Mean Corpuscular HGB Conc 34.8 g/dL (30-55); Mean Corpuscular Hemoglobin 31.8 pg (27-33); Mean Corpuscular Volume 91.3 fl (82-101); Mean Platelet Volume 9.1 fL (7.4-10.4); Monocytes # 0.7 10^3/uL (0.2-0.9); Monocytes % 6.8 %; Neutrophils # 7.27 10^3/uL (1.8-7.7); Neutrophils % 68.5 %; Nucleated Red Blood Cells % 0 %; Platelet Count 305 10^3/cmm (157-399); Red Blood Count 5.29 10^6/uL (3.85-5.65); Red Cell Distribution Width 12.4 % (12.1-15.1); White Blood Count 10.61 10^3/uL (3.29-11.43)
[2024-07-08 15:30] VITALS: BP 120/76; PULSE 76; O2SAT 95
[2024-07-08 15:35] LABS: Troponin(5th) Baseline 10 ng/L (0-15)
[2024-07-08 15:36] LABS: Alanine Aminotransferase 65 U/L (0-41); Albumin Level 4.5 g/dL (3.5-5.2); Alkaline Phosphatase 82 U/L (40-130); Anion Gap 14.4 (5-19); Aspartate Amino Transferase 36 U/L (0-40); Blood Urea Nitrogen 16 mg/dL (6-20); Calcium 8.6 mg/dL (8.5-10.5); Carbon Dioxide 27 mmol/L (22-29); Chloride 99 mmol/L (98-107); Creatinine Clr Calc Pharmacy 129.2807; Globulin 3.3 g/dL (1.3-4.6); Glomerular Filtration Rate 104.1 mL/min (90-130); Glucose 88 mg/dL (65-115); Osmolality Calculated 283 mOsm/kg (285-295); Potassium 4.4 mmol/L (3.5-5.1); Sodium 136 mmol/L (136-145); Total Bilirubin 0.5 mg/dL (0.15-1.2); Total Protein 7.8 g/dL (6.6-8.7)
--- NOTE | 2024-07-08 16:53 | ECG_ITS ---
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 Measurements Intervals [place] Rate: 74 P: 63 WY: 150 QRS: 87 QRSD: 104 T: 70 QT: 372 QTc: 414 Interpretive Statements SINUS RHYTHM POSSIBLE LEFT ATRIAL ENLARGEMENT [-0.1mV P-WAVE IN V1/V2] Compared to ECG 07/08/2024 14:50:29 No significant changes Electronically Signed On 07-11-2024 20:51:15 JAIL GUARD by Howard Hernandez M.D. [email or web address]
[2024-07-08 17:24] LABS: Troponin 5 2HR 10.14 ng/L (0-15); Troponin 5 2HR Delta 0.14 ABS# (0-10)
[2024-07-08 17:33] VITALS: BP 122/70; PULSE 75; O2SAT 95
== END 2024-07-08 17:35 | disposition home or self-care (01) ==
PROVIDERS: Emergency Provider Physician Assistant; PCP Family Medicine
DX: R07.89 Other chest pain (principal); F17.210 Nicotine dependence, cigarettes, uncomplicated; I10 Essential (primary) hypertension
CPT/HCPCS: 71045; 80053; 84484; 85025; 93005; 99285